=== PATIENT | male | born 1950 | race Caucasian/White ===

== ENCOUNTER 2017-07-17 16:47 | Inpatient (IN) | payer OTHER, MEDICAID ==
[~2017-07-17] VITALS: Ht 175.3 cm; Wt 68.0 kg
--- NOTE | 2017-07-17 19:30 | NUR ---
ADMISSION NOTE Received patient Direct Admit from [facility] via gurney, received report from Erika BORRERO. Patient admitted with diagnosis of Hematuria. Patient oriented to hospital routine, call light, toileting and safety-patient verbalized understanding.
[2017-07-17 19:46] VITALS: BP_SYST 91
[2017-07-17 19:50] VITALS: BP_SYST 91
--- NOTE | 2017-07-17 20:30 | NUR ---
OPENING NOTE RECEIVED PT REPORT FROM ADMIT NURSE SUZE. PT WAS A DIRECT ADMISSION FROM [facility], PT BROUGHT VIA GURNEY BY AMBULANCE. PT IS AOX4. CHEST RISE EVEN AND UNLABORED. NO SOB NOTED. NO DISTRESS NOTED. NO COMPLAINTS OF PAIN. PT ORIENTED TO ROOM. PT INSTRUCTED HOW TO USE CALL LIGHT. SAFETY MEASURES IN PLACE. BED IN LOWEST POSITION, BED ALARM ON, BED WHEELS LOCKED, SIDE RAILS UP X2, CALL LIGHT WITHIN REACH, BED TABLE WITHIN REACH. NO NEEDS AT THIS TIME. PT ENCOURAGED TO USE CALL LIGHT. WILL CONTINUE TO MONITOR PT.
--- NOTE | 2017-07-17 20:35 | NUR ---
DR. ANUJ ALBERT
--- NOTE | 2017-07-17 20:40 | NUR ---
DR. LESLIE PAGED FOR NEW ORDERS DR. LESLIE RETURNED CALL. NEW ORDERS RECEIVED FROM DR. LESLIE VIA TELEPHONE. ADMIT ORDER TO TELEMETRY. DX URINARY RETENTION, FLUID ORDER FOR NS @90, DIET: MECHANICAL SOFT. MORPHINE 4 MG IVP PRN Q4HRS FOR SEVER PAIN. CONSULT ORDER FOR DR. TOVAR, UROLOGY. MEDICATIONS NOT IN SYSTEM. DR. LESLIE REQUESTED ALL MEDICATIONS BE INPUTED INTO THE ORDERS AND HE WILL VERIFY WHICH MEDICATIONS TO CONTINUE. NO FURTHER ORDERS. WILL INPUT FURTHER ORDERS DAVIDSON.
--- NOTE | 2017-07-17 20:50 | NUR ---
CLOSING NOTE REPORT GIVEN TO GISSELL GRANADOS. DARWIN WILL BE TAKING OVER PT'S CARE. ENDORSED PT'S ORDERS AND POC.
[2017-07-17] MEDS ORDERED: ASPI81TA2 PO (20:57)
--- NOTE | 2017-07-17 21:08 | NUR ---
CONSULTATION PAGED/CALLED Reason for Consultation: URINARY RETENTION Person Who was Notified: SPOKE WITH SHANIKA FROM DR. TOVAR EXCHANGE Consulting Physician: Communication Coordinator Specialty: UROLOGIST Ordering Physician: AMBER HINDS
[2017-07-17] MEDS ORDERED: MAGN400O4 PO (21:17)
[2017-07-17] MEDS ORDERED: DOCU-144 PO (21:17)
[2017-07-17] MEDS ORDERED: LORA10CA PO (21:17)
[2017-07-17] MEDS ORDERED: MIRT15TA3 PO (21:17)
[2017-07-17] MEDS ORDERED: GABA-529 PO (21:17)
[2017-07-17] MEDS ORDERED: LOPE2CAP PO (21:17)
[2017-07-17] MEDS ORDERED: NA P118E RC (21:17)
[2017-07-17] MEDS ORDERED: LIP40 PO (21:17)
[2017-07-17] MEDS ORDERED: MULT PO (21:17)
[2017-07-17] MEDS ORDERED: LATA2.5D6 OP (21:17)
[2017-07-17] MEDS ORDERED: OMEG100037 PO (21:17)
[2017-07-17] MEDS ORDERED: TAMS-11 PO (21:17)
[2017-07-17] MEDS ORDERED: DULR10 RC (21:17)
[2017-07-17] MEDS ORDERED: NITSL SL (21:17)
[2017-07-17] MEDS ORDERED: CLOP75TA2 PO (21:17)
[2017-07-17] MEDS ORDERED: BISACODYL 10 MG/SUPPOSITORY RC PRN (21:30)
[2017-07-17] MEDS ORDERED: SIMETHICONE 80 MG TAB.CHEW PO PRN (21:30)
[2017-07-17] MEDS ORDERED: ONDANSETRON HCL 4 MG/2 ML VIAL IVP PRN (21:30)
--- NOTE | 2017-07-17 21:45 | NUR ---
Received call from FRANCI Concepcion covering for Dr. Borja (regarding urologist consult) Gave SBAR report. Advised that catheter site is red/swollen and leaking blood and urine. Only output thus far can't be measured, leaking onto bed. Informed him labs ordered for the AM. Informed him NS @ 90ml/hr ordered, he asked it be reduced to 50ml/hr. He said do not re-insert cath or attempt to irrigate. He says to have urology tray ready for AM and they will attempt irrigation and re-insertion. Informed charge nurse about urology tray request.
[2017-07-17 22:00] VITALS: BP_SYST 91
[2017-07-17] MEDS: NACL 0.9% 1,000 ML IV SCH (22:20)
[2017-07-17] MEDS: ZOLPIDEM TARTRATE 5 MG TABLET PO PRN (22:21)
--- NOTE | 2017-07-17 23:10 | NUR ---
PLATE MOUNTER advised that patient's BP is 66/38 (left arm) 72/45 (right arm) HR 94 98% room air 96.[address] Hughes to advise.
--- NOTE | 2017-07-17 23:13 | NUR ---
Called and spoke to Dr. Grey Advised of patient's low blood pressure. Dr. Grey ordered 1L NS bolus, stat (one-time) then to call him back 10 minutes after bolus administration to advise. Order read back, entered, carried out.
[2017-07-17] MEDS ORDERED: NACL 0.9% 1,000 ML IV ONE (23:15)
[2017-07-17 23:25] VITALS: BP_SYST 72
[2017-07-18] VITALS (26 sets, daily range): BP systolic 61–142
--- NOTE | 2017-07-18 00:40 | NUR ---
Called and spoke to Dr. Grey Advised of patient's blood pressure after 1LNS bolus 71/47 No output yet, bladder scan done approx 160ml residual. Dr. Grey ordered an additional 1L NS bolus, stat (one-time) then to call him back 10 minutes after bolus administration to advise. Order read back, entered, carried out.
[2017-07-18] MEDS ORDERED: NA PHOS,M-B/NA PHOS,DI-BA 118 ML (FLEET ENEMA) RC PRN (00:45)
[2017-07-18] MEDS ORDERED: LevALBUTEROL HCL 1.25 MG/0.5 ML *CONC.* VIAL.NEB (XOPENEX CONC.) INH PRN (00:45)
[2017-07-18] MEDS ORDERED: NITROGLYCERIN 0.4 MG TAB.SUBL SL PRN (00:45)
[2017-07-18] MEDS ORDERED: NACL 0.9% 1,000 ML IV ONE (01:00)
[2017-07-18] MEDS: LevALBUTEROL HCL 1.25 MG/0.5 ML *CONC.* VIAL.NEB (XOPENEX CONC.) INH SCH ×4 (01:17→19:46)
[2017-07-18] MEDS ORDERED: cefTRIAXone 1 GM IVPB PREMIX 50 ML IV ONE (02:05)
--- NOTE | 2017-07-18 02:05 | NUR ---
Called and spoke to Dr. Grey Advised that second ordered 1L NS bolus has infused, BP resulted 61/45, patient is still asymptomatic and alert/oriented x4. Dr. Grey ordered : to transfer patient to ICU, PICC line insertion, and levophed drip for BP maintenance. Order read back, entered, carried out. Will transfer patient to ICU.
[2017-07-18] MEDS ORDERED: VANCOMYCIN HCL 1,000 MG in D5W 250 ML IV SCH (02:45)
--- NOTE | 2017-07-18 02:45 | NUR ---
RECEIVED IN ICU Patient received in ICU bed #5 at this time. Patient awake and awake. SBP below 65. Patient on room air. No sign of respiratory distress noted. IV on RFA 18g running NS @ 150ml/hr. No sign of infiltration noted. Safety precaution in place. Call light within reach.
[2017-07-18] MEDS ORDERED: NOREPINEPHRINE 4 MG/4 ML VIAL IV ONE (03:02)
--- NOTE | 2017-07-18 03:10 | NUR ---
LEVOPHED Levophed started at this time at 2 mcg/min.
[2017-07-18] MEDS: NOREPINEPHRINE BITARTRATE 4 MG in D5W 246 ML IV PRN ×4 (03:16→21:59)
--- NOTE | 2017-07-18 03:20 | NUR ---
Levophed at 4 mcg/min Levophed titrated to 4mcg/min.
[2017-07-18] MEDS: cefTRIAXone 1 GM in D5W 50 ML IV SCH (03:30)
--- NOTE | 2017-07-18 03:40 | NUR ---
Levophed at 6 mcg/min Levophed titrated to 6 mcg/min.
[2017-07-18 03:41] LABS: HEMOGLOBIN 10.1 g/dL (14.0-18.0); MEAN CORPUSCULAR HEMOGLOBIN 28 pg (27-31); MEAN CORPUSCULAR HGB CONC 32 % (32-36); MEAN CORPUSCULAR VOLUME 85 fL (79.0-98.0); NEUTROPHILS % (AUTO) 94.8 % (40.0-70.0); PLATELET COUNT (AUTO) 364 K/uL (130-430); RED BLOOD CELL COUNT(AUTO) 3.64 MIL/uL (4.2-6.2); RED CELL DISTRIBUTION WIDTH 13.1 % (9.0-15.0); WHITE BLOOD COUNT (AUTO) 27.9 K/uL (4.8-10.8)
[2017-07-18 03:42] LABS: BASOPHILS # (AUTO) 0.1 K/uL (0.0-0.2); BASOPHILS % (AUTO) 0.2 % (0.0-2.0); EOSINOPHILS % (AUTO) 0.1 % (0.0-4.0); LYMPHOCYTES # (AUTO) 0.8 K/uL (1.0-5.5); MONOCYTES # (AUTO) 0.5 K/uL (0.0-1.0); MONOCYTES % (AUTO) 1.9 % (1.7-9.3); NEUTROPHILS # (AUTO) 26.5 K/uL (1.8-7.7)
[2017-07-18] MEDS ORDERED: VANCOMYCIN HCL 1000 MG/VIAL IV ONE (03:58)
--- NOTE | 2017-07-18 04:00 | NUR ---
Levophed at 8 mcg/min Levophed increased to 8 mcg/min. SBP at 86. Will continue to monitor.
--- NOTE | 2017-07-18 04:10 | NUR ---
Levophed at 10 mcg/min Levophed increased to 10 mcg/min.
[2017-07-18 04:11] LABS: INR 1.3 (0.80-1.20); PROTHROMBIN TIME 12.9 SECS (9.5-12.5)
[2017-07-18 04:13] LABS: PHOSPHORUS 3.9 mg/dL (2.7-4.5)
--- NOTE | 2017-07-18 04:15 | NUR ---
BP Patient's BP now at 93/43. Patient awake,alert and denies pain. VSS. No sign of distress noted at this time. Will continue to monitor.
[2017-07-18 04:38] LABS: ALBUMIN 2.5 g/dL (3.4-4.8); CALCIUM 8.2 mg/dL (8.4-11.0); CREATININE 1.37 mg/dL (0.55-1.30); FREE T4 (FREE THYROXINE) 0.6 ng/dL (0.6-1.6); PHOSPHORUS 3.7 mg/dL (2.7-4.5); THYROID STIMULATING HORMONE 1.09 uIu/mL (0.34-4.82); TOTAL BILIRUBIN 0.5 mg/dL (0.0-1.0)
--- NOTE | 2017-07-18 05:15 | NUR ---
DR ARELLANO EXCHANGE NOTIFIED OF CONSULT, TALKED TO QUIANA DR BARONE EXCHANGE NOTIFIED OF CONSULT, TALKED TO QUIANA
--- NOTE | 2017-07-18 05:15 | NUR ---
LEVOPHED AT 12MCG/MIN
--- NOTE | 2017-07-18 06:00 | NUR ---
PICC LINE CONSENT Consent for PICC Line placement signed by patient.
--- NOTE | 2017-07-18 07:10 | NUR ---
ENDORSEMENT Patient endorsed and report given to am nurse Rory. Other items endorsed: Sepsis reassessment, Levophed drip, UA specimen to be collected, Follow up on consults. Patient awake,alert and oriented at this time. VSS. BP within normal limits. Levophed still running at 12 mcg/min.
--- NOTE | 2017-07-18 08:00 | NUR ---
RN OPENING NOTE REPORT ENDORSED AT BEDSIDE BY GISSELL PULIDO. PT AWAKE AND ORIENTED X 4, SPEAKS LITHUANIAN, COOPERATIVE WITH NO COMPLAINT OF PAIN. LEVOPHED INFUSING AT 12mcg/MIN, bp 116/62. BREATHING UNLABORED AND SYMMETRICAL, 3L O2 VIA NC. TERESA IN PLACE AND SECURED, BLOODY OUTPUT NOTED WITH ACTIVE BLEEDING AT TERSEA INSERTION POINT: UROLOGIST IS SCHEDULED TO IRRIGATE BLADDER TODAY. BOWEL SOUNDS ACTIVE X 4, ABDOMEN DISTENDED. PT EDUCATED ON UNIT SAFETY AND DEMONSTRATED ABILITY TO USE CALL LIGHT, WHICH IS WITHIN REACH.
[2017-07-18] MEDS: NACL 0.9% 1,000 ML IV SCH ×3 (08:29→21:41)
--- NOTE | 2017-07-18 08:30 | NUR ---
levophed would not scan: manual barcode entered.
[2017-07-18] MEDS ORDERED: CLOPIDOGREL BISULFATE 75 MG TABLET PO SCH (09:00)
--- NOTE | 2017-07-18 09:20 | NUR ---
DR. LESLIE AT BEDSIDE NEW ORDERS RECEIVED, INCLUDING A CT SCAN OF THE ABDOMEN AND A SWALLOW EVAL.
[2017-07-18] MEDS ORDERED: HYDROCORTISONE SOD SUCC 100 MG/2 ML VIAL IVP ONE (09:45)
[2017-07-18] MEDS: DOCUSATE SODIUM 100 MG CAPSULE PO SCH ×2 (09:48→21:41)
[2017-07-18] MEDS: LORATADINE 10 MG TABLET PO SCH (09:48)
[2017-07-18] MEDS: ASPIRIN 81 MG TAB.CHEW PO SCH (09:49)
[2017-07-18] MEDS: TAMSULOSIN HCL 0.4 MG CAP PO SCH ×2 (09:49→21:44)
--- NOTE | 2017-07-18 09:51 | NUR ---
Swallow evaluation called left a message for Jo, dialed [phone]
--- NOTE | 2017-07-18 10:55 | NUR ---
CT ABDOMEN PT TRANSPORTED TO RADIOLOGY ON DECKHAND TUNA BOAT AND O2 THERAPY. NURSE REMAINED WITH PT THE ENTIRE TIME AND RETURNED PT TO ROOM 1115.
--- NOTE | 2017-07-18 11:30 | NUR ---
PICC LINE NURSE AT BEDSIDE PICC INSERTED AT RIGHT UPPER ARM.
[2017-07-18] MEDS: MORPHINE 4 MG/ML INJ. SYRINGE IVP PRN (12:00)
--- NOTE | 2017-07-18 13:50 | NUR ---
FRANCI ALONSO AT BEDSIDE/BLADDER IRRIGATION NEW TERESA PLACED USING GUIDEWIRE. BLADDER IRRIGATED 3L, NO S/S OF CURRENT BLEEDING, NO BLADDER DISTENTION NOTED.
--- NOTE | 2017-07-18 14:48 | NUR ---
S.T. SWALLOW EVAL COMPLETED. PT PRESENTS W/ MOD ORAL DYSPHAGIA CHARACTERIZED BY PROLONGED AND LABORED MASTICATION W/ ORAL RESIDUE CLEARED BY LIQUID CHASER. NO S/S OF ASPIRATION. REC: PUREE DIET. THIN LIQUIDS OK. PT WAS RELUCTANT TO CHANGE TO PUREE DIET, BUT JAVA FRONT END WEB DEVELOPER EXPLAINED TO HIM THE RATIONALE FOR CHANGING TO PUREE AND HE FINALLY AGREED. NURSE JAMES NOTIFIED. [id number] CJ [id number] CJ [id number] NOMS LEVEL 5
[2017-07-18] MEDS ORDERED: MORPHINE 4 MG/ML INJ. SYRINGE IVP ONE (15:00)
[2017-07-18] MEDS: HYDROCORTISONE SOD SUCC 100 MG/2 ML VIAL IVP SCH ×2 (15:23→21:41)
[2017-07-18] MEDS ORDERED: GENTAMICIN 120 mg/100 mL NS 100 ML IV ONE (16:00)
--- NOTE | 2017-07-18 18:52 | NUR ---
REQUEST FOR DR. TOVAR/FRANCI ALONSO TO CONTACT PT'S DAUGHTER, ALBERTO: [phone]
--- NOTE | 2017-07-18 20:43 | NUR ---
Patient awake alert sitting up in bed on 02 NC @ 3 LPM verbally indicative assist for position change chest movement symmetrical unlabored call yeung with patient .
[2017-07-18] MEDS ORDERED: LATANOPROST 2.5 ML DROPS (XALATAN) OP SCH (21:00)
[2017-07-18] MEDS: GABAPENTIN 100 MG CAPSULE PO SCH (21:42)
[2017-07-18] MEDS: ATORVASTATIN 20 MG TABLET PO SCH (21:43)
[2017-07-18] MEDS: LORazepam 2 MG/ML VIAL IVP PRN (21:44)
[2017-07-18] MEDS: MIRTAZAPINE 15 MG TABLET PO SCH (21:47)
--- NOTE | 2017-07-18 22:20 | NUR ---
LORAZEPAM 1 MG IVP administer per patient Request for agitation / anxiety .
--- NOTE | 2017-07-18 22:21 | NUR ---
ATIVAN 1 MG IVP HELPFUL FOR AGITATION , PATIENT AWAKE & COMFORTABLE .
--- NOTE | 2017-07-18 23:23 | NUR ---
SBAR REPORT GIVEN TO JAMES BORRERO .
[2017-07-19] VITALS (24 sets, daily range): BP systolic 86–144
[2017-07-19] MEDS ORDERED: VANCOMYCIN HCL 1,250 MG in NS 250 ML IV SCH ×2
--- NOTE | 2017-07-19 | NUR ---
AAOX4. IN NO APPARENT DISTRESS. DENIES PAIN. LEVOPHED DRIP AT 8 MCG/MIN. BP 126/55, LEVOPHED DRIP TITRATED DOWN TO 6 MCG/MIN. ON O2 AT 3L/MIN. TERESA CATH PATENT DRAINING MOD YELLOW URINE TO GRAVITY.
--- NOTE | 2017-07-19 00:15 | NUR ---
BP 119/66, LEVOPHED DECREASED TO 4 MCG/MIN.
[2017-07-19] MEDS: cefTRIAXone 1 GM in D5W 50 ML IV SCH (00:29)
[2017-07-19] MEDS: LevALBUTEROL HCL 1.25 MG/0.5 ML *CONC.* VIAL.NEB (XOPENEX CONC.) INH SCH ×4 (01:00→19:51)
--- NOTE | 2017-07-19 01:00 | NUR ---
REFUSED BR TX.
--- NOTE | 2017-07-19 02:00 | NUR ---
SLEPT INTERMITTENTLY. OCC MOIST NON-PRODUCTIVE COUGH. REPOSITIONS SELF WELL.
--- NOTE | 2017-07-19 04:00 | NUR ---
BP 105/53, LEVOPHED DRIP TITRATED DOWN TO 2 MCG/MIN.
--- NOTE | 2017-07-19 05:00 | NUR ---
1 TABATHA BREEN LBQuintin, CLEANED. LACEY-CARE GIVEN. Z-GUARD APPLIED, SKIN CARE GIVEN. ORAL CARE DONE. CHG BATH RENDERED. BACK CARE DONE. COMPLETE LINEN CHANGE. ASSISTS WITH TURNING. RAJEEV GUARDADO WELL. Addendum: 07/19/17 at 0642 by Rory Modi RN TERESA CARE DONE, OLD BLOOD NOTED.
[2017-07-19] MEDS: NACL 0.9% 1,000 ML IV SCH ×2 (05:02→11:58)
--- NOTE | 2017-07-19 06:00 | NUR ---
UO GOOD. DENIES PAIN, SOB, DISTRESS. LEVOPHED AT 2 MCG/MIN. REMAINS IN GUARDED CONDITION.
[2017-07-19] MEDS: HYDROCORTISONE SOD SUCC 100 MG/2 ML VIAL IVP SCH ×2 (06:01→20:28)
[2017-07-19 06:43] LABS: HEMATOCRIT 28.9 % (36-54); HEMOGLOBIN 9.7 g/dL (14.0-18.0); MEAN CORPUSCULAR HEMOGLOBIN 29 pg (27-31); MEAN CORPUSCULAR HGB CONC 34 % (32-36); MEAN CORPUSCULAR VOLUME 85 fL (79.0-98.0); PLATELET COUNT (AUTO) 324 K/uL (130-430); RED BLOOD CELL COUNT(AUTO) 3.39 MIL/uL (4.2-6.2); RED CELL DISTRIBUTION WIDTH 13.6 % (9.0-15.0); WHITE BLOOD COUNT (AUTO) 24.7 K/uL (4.8-10.8)
[2017-07-19 07:06] LABS: ALBUMIN 2.4 g/dL (3.4-4.8); CALCIUM 8.5 mg/dL (8.4-11.0); CREATININE 0.67 mg/dL (0.55-1.30); PHOSPHORUS 2.6 mg/dL (2.7-4.5); POTASSIUM 3.4 mmol/L (3.5-5.1); TOTAL BILIRUBIN 0.2 mg/dL (0.0-1.0)
--- NOTE | 2017-07-19 07:10 | NUR ---
AM ROUNDS: Patient is awake, alert, and oriented x4. Patient denies pain and is asking when he is going to be moved. No s/s of distress noted. Will continue to monitor.
--- NOTE | 2017-07-19 07:17 | NUR ---
LEVOPHED: Drip stopped.
--- NOTE | 2017-07-19 07:59 | NUR ---
Nutrition Update Louie Scale 14 noted. Pt admitted for hematuria Diet: pureed diet BMI: 22.2 kg/m2 RD to follow per nutrition care standards.
[2017-07-19 08:00] LABS: BILIRUBIN,URINE NEGATIVE (NEGATIVE); BLOOD, URINE 3+ (NEGATIVE); CLARITY/URINE CLOUDY (CLEAR); COLOR,URINE YELLOW (YELLOW); GLUCOSE,URINE NEGATIVE (NEGATIVE); KETONES,URINE TRACE (NEGATIVE); LEUKOCYTE ESTERASE ,URINE 2+ (NEGATIVE); NITRITE, URINE NEGATIVE (NEGATIVE); PROTEIN URINE NEGATIVE (NEGATIVE); UROBILINOGEN,URINE 0.2 (0.2-1.0)
[2017-07-19 08:16] LABS: RBC,URINE 20-50 /HPF (0-3)
[2017-07-19 08:17] LABS: BACTERIA,URINE MODERATE /HPF (None Seen); MUCUS,URINE 1+ /LPF (None Seen); WBC,URINE >100 /HPF (0-3)
[2017-07-19] MEDS: DOCUSATE SODIUM 100 MG CAPSULE PO SCH ×2 (08:25→20:29)
[2017-07-19] MEDS: POTASSIUM CHLORIDE 20 MEQ TAB.PRT.SR PO PRN (08:26)
[2017-07-19] MEDS: TAMSULOSIN HCL 0.4 MG CAP PO SCH ×2 (08:26→20:28)
[2017-07-19] MEDS: LORATADINE 10 MG TABLET PO SCH (08:26)
[2017-07-19] MEDS: ASPIRIN 81 MG TAB.CHEW PO SCH (08:26)
[2017-07-19] MEDS: LORazepam 2 MG/ML VIAL IVP PRN ×2 (08:54→18:59)
--- NOTE | 2017-07-19 09:00 | NUR ---
P.T. NOTES (Late entry) HOLD P.T. EVAL PER GISSELL BOWLES DUE TO HIGH HEART RATE (MID 150'S). PLAN: FOLLOW UP AGAIN TOMORROW.
--- NOTE | 2017-07-19 09:00 | NUR ---
PAGED: Dr. Grey pageshakeel regarding elevated HR. Spoke with his office.
[2017-07-19] MEDS ORDERED: DILTIAZEM HCL 25 MG/5 ML VIAL IVP ONE ×2 (09:15→10:00)
[2017-07-19] MEDS ORDERED: DILTIAZEM HCL 30 MG TABLET PO ONE (09:15)
--- NOTE | 2017-07-19 09:15 | NUR ---
MD ROUNDS: Dr. Grey in to see patient. He was made aware of change in HR.
--- NOTE | 2017-07-19 09:22 | NUR ---
consult for dr. garrison called spoke to [facility] dialed [phone]
[2017-07-19 09:24] LABS: BAND % (MANUAL) 15 % (0-6); BASOPHILS % (MANUAL) 0 % (0-2); EOSINOPHILS % (MANUAL) 0 % (0-7); LYMPHOCYTES % (MANUAL) 4 % (20-46); MONOCYTES % (MANUAL) 2 % (0-11)
[2017-07-19] MEDS ORDERED: DILTIAZEM HCL 25 MG/5 ML VIAL ONE ×2 (09:24→09:57)
[2017-07-19] MEDS ORDERED: DILTIAZEM HCL 30 MG TABLET ONE (09:24)
--- NOTE | 2017-07-19 09:38 | NUR ---
PAGED: Dr. Grey paged regarding follow up for medication administration. Spoke with his office.
--- NOTE | 2017-07-19 09:47 | NUR ---
MD ALBERT: Dr. El albert, spoke with his office.
--- NOTE | 2017-07-19 09:51 | NUR ---
CALLBACK: Dr. Grey called back, orders received.
--- NOTE | 2017-07-19 10:06 | NUR ---
PAGED: Dr. El kearney, spoke with eleni
[2017-07-19] MEDS ORDERED: AMIODARONE HCL 900 MG in D5W 482 ML IV SCH (11:00)
[2017-07-19] MEDS ORDERED: AMIODARONE HCL 150 MG in D5W 100 ML IV ONE (11:15)
[2017-07-19] MEDS ORDERED: LEVOFLOXACIN 250 MG/D5W 50 ML IV ONE (11:30)
--- NOTE | 2017-07-19 11:53 | NUR ---
MD ROUNDS: Dr. Cherry is on the unit, patient has just converted to NSR. Orders received from Dr. Cherry.
--- NOTE | 2017-07-19 11:56 | NUR ---
Dietitian Recommendations *Recommend continuing Pureed diet per MD orders. Oral supplement Boost Plus comes standard w/ Pureed diet and provides additional 1080 kcal and 42 gm protein daily. *Encourage pt to increase his food intake. Please see Nutritional Assessment for details. SUSHANT TREVINO
[2017-07-19] MEDS ORDERED: AMIODARONE HCL 200 MG TABLET PO ONE (12:00)
--- NOTE | 2017-07-19 12:15 | NUR ---
LEVOPHED: Started at 8mcg/min. Will continue to monitor.
--- NOTE | 2017-07-19 12:30 | NUR ---
Trimmer Tailer Note: Pt referred to Trimmer Tailer by nursing for suicide risk assessment. RECORD SYSTEMS ANALYST met with pt at bedside. Pt appears to be alert and oriented. RECORD SYSTEMS ANALYST completed Discharge Plan Assessment; please refer to Assessment for additional information if needed. Pt has been living at [facility] for 5 months. Prior to that, pt was living at [facility] for 2.5 years due to pt having a stroke. Pt moved to [facility] to be closer to his dtr, Amy, that lives in [place]. Pt reports history of anxiety and depression. Pt takes medication for his mental health symptoms. Pt could not remember which medication he takes, but reports that the medication is helpful. Pt reports having a desire to harm himself, but he does not have a current plan or the means to carry it out. Pt reports feeling hopeless due to his current condition. 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 Pt's daughters visit pt often and pt has two grandchildren. Pt reports that his family is supportive. RECORD SYSTEMS ANALYST provided emotional support. Pt did not express any other needs or concerns at this time. RECORD SYSTEMS ANALYST encouraged pt to contact Trimmer Tailer if any additional needs arise. RECORD SYSTEMS ANALYST updated Charge Nurse, Vanessa, and confirmed that pt is receiving paper tray from [facility]. Trimmer Tailer will continue to remain available and follow up as needed.
--- NOTE | 2017-07-19 12:50 | NUR ---
LEVOPHED: Titrated to 17mcg/min. Will continue to monitor.
--- NOTE | 2017-07-19 13:00 | NUR ---
REFUSED LUNCH: Patient refused lunch at this time.
[2017-07-19] MEDS: DILTIAZEM HCL 30 MG TABLET PO SCH ×2 (13:26→21:22)
[2017-07-19] MEDS: NOREPINEPHRINE BITARTRATE 4 MG in D5W 246 ML IV PRN ×2 (14:09→20:43)
--- NOTE | 2017-07-19 14:09 | NUR ---
LEVOPHED: Titrated to 14mcg/min.
--- NOTE | 2017-07-19 15:00 | NUR ---
LEVOPHED: Titrated to 10mcg/min.
--- NOTE | 2017-07-19 17:00 | NUR ---
LEVOPHED: Titrated to 8mcg/min.
--- NOTE | 2017-07-19 18:00 | NUR ---
LEVOPHED: Titrated to 6mcg/min.
--- NOTE | 2017-07-19 19:30 | NUR ---
PM SHIFT ASSESSMENT Pt is alert and oriented x2. SR noted on monitor. O2 via NC @ 3L, RR even and unlabored. PICC to OLGA with IVF infusing, no signs of infiltration noted. Allen catheter intact and draining to gravity, scant blood noted at allen insertion site, urine is clear yellow. Safety precautions in place, call light within reach. Will continue to monitor.
[2017-07-19] MEDS: MIRTAZAPINE 15 MG TABLET PO SCH (20:28)
[2017-07-19] MEDS: ZOLPIDEM TARTRATE 5 MG TABLET PO PRN (20:29)
[2017-07-19] MEDS: AMIODARONE HCL 200 MG TABLET PO SCH (20:29)
[2017-07-19] MEDS: GABAPENTIN 100 MG CAPSULE PO SCH (20:29)
[2017-07-19] MEDS: ATORVASTATIN 20 MG TABLET PO SCH (20:30)
[2017-07-19] MEDS: LATANOPROST 2.5 ML DROPS (XALATAN) OP SCH (20:30)
[2017-07-19] MEDS: ACETAMINOPHEN 325 MG TABLET PO PRN (21:23)
--- NOTE | 2017-07-19 22:15 | NUR ---
CHG CHG bath given, pt tolerated care well.
[2017-07-19 23:11] LABS: HEMOGLOBIN A1C 5.5 % (4.8-5.6)
[2017-07-20] VITALS (25 sets, daily range): BP systolic 84–129
[2017-07-20] MEDS: LevALBUTEROL HCL 1.25 MG/0.5 ML *CONC.* VIAL.NEB (XOPENEX CONC.) INH SCH ×4 (00:59→19:49)
[2017-07-20] MEDS: cefTRIAXone 1 GM in D5W 50 ML IV SCH (01:04)
[2017-07-20 02:06] LABS: T4 (THYROXINE) 5.6 ug/dL (4.5-12.0)
--- NOTE | 2017-07-20 03:30 | NUR ---
Pt resting in bed, no signs of SOB or acute distress noted. Will continue to monitor.
[2017-07-20 06:56] LABS: BASOPHILS % (AUTO) 0.2 % (0.0-2.0); EOSINOPHILS % (AUTO) 0.1 % (0.0-4.0); HEMATOCRIT 28.2 % (36-54); HEMOGLOBIN 9.4 g/dL (14.0-18.0); LYMPHOCYTES # (AUTO) 1.5 K/uL (1.0-5.5); LYMPHOCYTES % (AUTO) 8.1 % (20.5-51.5); MEAN CORPUSCULAR HEMOGLOBIN 28 pg (27-31); MEAN CORPUSCULAR HGB CONC 33 % (32-36); MEAN CORPUSCULAR VOLUME 85 fL (79.0-98.0); MONOCYTES # (AUTO) 0.9 K/uL (0.0-1.0); MONOCYTES % (AUTO) 4.9 % (1.7-9.3); NEUTROPHILS # (AUTO) 16.3 K/uL (1.8-7.7); NEUTROPHILS % (AUTO) 86.7 % (40.0-70.0); PLATELET COUNT (AUTO) 306 K/uL (130-430); RED BLOOD CELL COUNT(AUTO) 3.32 MIL/uL (4.2-6.2); RED CELL DISTRIBUTION WIDTH 13.2 % (9.0-15.0)
[2017-07-20] MEDS ORDERED: DILTIAZEM HCL 30 MG TABLET ONE (06:57)
[2017-07-20] MEDS: DILTIAZEM HCL 30 MG TABLET PO SCH ×3 (06:58→21:39)
[2017-07-20] MEDS: NACL 0.9% 1,000 ML IV SCH (06:58)
[2017-07-20 07:09] LABS: CALCIUM 8.4 mg/dL (8.4-11.0); CREATININE 0.63 mg/dL (0.55-1.30); PHOSPHORUS 3.3 mg/dL (2.7-4.5)
[2017-07-20 07:11] LABS: WHITE BLOOD COUNT (AUTO) 18.7 K/uL (4.8-10.8)
--- NOTE | 2017-07-20 07:15 | NUR ---
ENDORSEMENT Pt care endorsed to GISSELL Jalloh using nursing SBAR.
[2017-07-20 07:19] LABS: POTASSIUM 2.7 mmol/L (3.5-5.1)
--- NOTE | 2017-07-20 07:24 | NUR ---
PAGED: Dr. Grey paged for critical labs. Left a voicemail on cell phone.
--- NOTE | 2017-07-20 07:24 | NUR ---
REPORT: Report received from Linsey for continuation of care.
--- NOTE | 2017-07-20 07:34 | NUR ---
CALLBACK: Dr. Grey stated he would come in to enter orders.
[2017-07-20] MEDS: AMIODARONE HCL 200 MG TABLET PO SCH ×2 (08:19→20:17)
[2017-07-20] MEDS: HYDROCORTISONE SOD SUCC 100 MG/2 ML VIAL IVP SCH ×2 (08:20→20:18)
[2017-07-20] MEDS: TAMSULOSIN HCL 0.4 MG CAP PO SCH ×2 (08:21→20:17)
[2017-07-20] MEDS: DOCUSATE SODIUM 100 MG CAPSULE PO SCH ×2 (08:21→20:18)
[2017-07-20] MEDS: LORATADINE 10 MG TABLET PO SCH (08:21)
[2017-07-20] MEDS: ASPIRIN 81 MG TAB.CHEW PO SCH (08:21)
[2017-07-20] MEDS: POTASSIUM CHLORIDE 20 MEQ TAB.PRT.SR PO PRN (08:21)
--- NOTE | 2017-07-20 08:45 | NUR ---
P.T. NOTES GOT CLEARANCE FROM GISSELL BOWLES TO INITIATE P.T. EVAL. ATTEMPTED TO DO SOME BED MOBILITY ACTIVITIES BUT GISSELL ROSALES STATES TO HOLD P.T. AT THIS TIME. REQUESTED TO CANCEL P.T. EVAL ORDER UNTIL M.D. CLEARS HIM THAT HE CAN START OUT OF BED ACTIVITIES. PLAN: WE'LL FOLLOW UP WHEN NEW P.T. EVAL IS ORDERED.
[2017-07-20] MEDS ORDERED: LEVOFLOXACIN 250 MG/D5W 50 ML IV SCH (09:00)
--- NOTE | 2017-07-20 09:05 | NUR ---
consult for dr. clark called (dr. andres medical radiation tech) spoke to arunchrissy dialed [phone]
--- NOTE | 2017-07-20 09:39 | NUR ---
MEDICATION: Medication administration not saved. Medication entered manually per Charge, GISSELL Mendez.
[2017-07-20] MEDS: NOREPINEPHRINE BITARTRATE 4 MG in D5W 246 ML IV PRN (10:39)
--- NOTE | 2017-07-20 10:54 | NUR ---
pt in bed room 8 in ICU PT TRY TO DO NUMBER 2 AND THE SITTER BESIDE HIM
--- NOTE | 2017-07-20 10:55 | NUR ---
PT RESTING IN BED AND WE MONITOR HIS VITAL SIGN
--- NOTE | 2017-07-20 11:09 | NUR ---
PT IS AWAKE JUST TALKING TALKING
--- NOTE | 2017-07-20 11:30 | NUR ---
PT WENT BACK TO SLEEP AND THE SITTER BESIDE HIM
--- NOTE | 2017-07-20 11:45 | NUR ---
FAMILY WITH HIM NOW AND THE SITTER BESIDE HIM
[2017-07-20] MEDS ORDERED: POTASSIUM CHLORIDE 20 MEQ TAB.PRT.SR PO ONE (12:00)
[2017-07-20] MEDS: MORPHINE 4 MG/ML INJ. SYRINGE IVP PRN ×2 (12:00→19:28)
--- NOTE | 2017-07-20 12:02 | NUR ---
PT GET HIS MEDICATION AND THE FAMILY WITH HIM IN ROOM
--- NOTE | 2017-07-20 12:15 | NUR ---
PT WENT BACK TO SLEEP
--- NOTE | 2017-07-20 12:27 | NUR ---
PT REFUSE TO EAT BUT HE DRINK THE BOOST
--- NOTE | 2017-07-20 12:45 | NUR ---
PT WENT BACK TO SLEEP
--- NOTE | 2017-07-20 13:00 | NUR ---
PATIENT RESTING: Patient resting quietly. No acute distress noted. Vital signs within normal range.
--- NOTE | 2017-07-20 13:02 | NUR ---
LOUIE SCALE EVALUATION: Patient evaluated for a low Louie score of 15. Patient was awake, alert, oriented, and received in a Abdirizak bed with a mattress. Patient is unable to turn in bed independently. Skin is fair. Recommend encourage and assist patient as needed with repositioning every 2 hours with pillow support and off-load pressure areas with pillows for pressure re-distribution. Elevate, off-load and float bilateral heels with pillows. Use moisture barrier cream on buttocks and other moisture susceptible areas QID and as needed for soiling. Perform skin care and monitor skin integrity Q shift.
--- NOTE | 2017-07-20 13:15 | NUR ---
PATIENT RESTING: Patient resting quietly. No acute distress noted. Vital signs within normal range.
--- NOTE | 2017-07-20 13:29 | NUR ---
security came to scan the pt and the sitter beside
--- NOTE | 2017-07-20 13:45 | NUR ---
pt sleeping he look comfortable
--- NOTE | 2017-07-20 14:00 | NUR ---
pt sleeping and the sitter beside his vital normal 101/53 ,oxygen 98% heart rate is 68
--- NOTE | 2017-07-20 14:15 | NUR ---
pt still sleeping
--- NOTE | 2017-07-20 14:29 | NUR ---
PAGED: Dr. Levin paged for micro results.
--- NOTE | 2017-07-20 14:30 | NUR ---
pt resting he have family and the sitter beside him
--- NOTE | 2017-07-20 14:38 | NUR ---
pt still sleeping
--- NOTE | 2017-07-20 15:01 | NUR ---
CALLBACK: Dr. Levin called back, stated he would come in.
--- NOTE | 2017-07-20 15:02 | NUR ---
pt get his medication now he is sleeping he look comfortable and the sitter beside him
--- NOTE | 2017-07-20 15:15 | NUR ---
pt still sleeping his family left and the sitter beside him
--- NOTE | 2017-07-20 15:30 | NUR ---
pt still resting
[2017-07-20] MEDS: LORazepam 2 MG/ML VIAL IVP PRN (15:32)
--- NOTE | 2017-07-20 15:45 | NUR ---
he still sleeping
--- NOTE | 2017-07-20 16:00 | NUR ---
he is sleeping his vital is normal blood pressure is96/54 heart rate is 61 and his oxygen is 98%
--- NOTE | 2017-07-20 16:14 | NUR ---
Indira DUNCAN: Dr. Avery kearney spoke to cristiane dialed [phone]
[2017-07-20] MEDS ORDERED: *TOBRAMYCIN PER PHARMACY XX PRN (16:15)
--- NOTE | 2017-07-20 16:15 | NUR ---
PT STILL SLEEPING AND THE SITTER BESIDE HIM
--- NOTE | 2017-07-20 16:30 | NUR ---
PT STILL SLEEPING
--- NOTE | 2017-07-20 16:45 | NUR ---
PT STILL SLEEPING AND THE SITTER BESIDE HIM
--- NOTE | 2017-07-20 17:02 | NUR ---
pt still sleeping
--- NOTE | 2017-07-20 17:08 | NUR ---
MS Indira Varela called spoke to ed dialed [phone]
--- NOTE | 2017-07-20 17:15 | NUR ---
pt still sleeping and the sitter beside him
--- NOTE | 2017-07-20 17:20 | NUR ---
MEDICATION: Tobramycin not available. Spoke with Garrett in pharmacy, he stated they are mixing it.
--- NOTE | 2017-07-20 17:27 | NUR ---
Paged: Dr. Varela paged spoke to ed dialed [phone]
[2017-07-20] MEDS: TOBRAMYCIN SULFATE IV SCH (17:28)
[2017-07-20] MEDS: NS IV SCH (17:28)
--- NOTE | 2017-07-20 17:30 | NUR ---
pt get chg bath he is awake now
--- NOTE | 2017-07-20 17:35 | NUR ---
CALLBACK: Dr. Varela called, he is covering for Dr. Dewey. Stated he would be in tomorrow morning to see patient.
--- NOTE | 2017-07-20 17:45 | NUR ---
pt refuse to eat his dinner but he drink his boost and he like the ice cream
--- NOTE | 2017-07-20 18:15 | NUR ---
opening notes:Tp is on Rm 8 his lying & sleeping by this time, Pt looks comfortably.continue of monitoring.
--- NOTE | 2017-07-20 18:30 | NUR ---
PT STILL SLEEPING ,NO SIGNS OF DISCOMFORT.CONTINUE OF MONITORING
--- NOTE | 2017-07-20 18:44 | NUR ---
CLOSING NOTE: All needs met. Patient is on O2 via NC @ 3LPM. Levophed drip is running at 8mcg/min. Gonzales catheter is draining to gravity. Sitter is at bedside. Will endorse to NOC shift nurse.
--- NOTE | 2017-07-20 18:45 | NUR ---
PT STILL SLEEPING NO SIGNS OF DISTRESS.CONTINUE OF MONITORING.
--- NOTE | 2017-07-20 19:00 | NUR ---
PT IS AWAKE HIS ASKING FOR TYLENOL NURSE IS AWARE FOR PT REQUEST, PT HIS DRINKING BOOTS RIGHT NOW.PT HE LOOKS FINE .CONTINUE OF MONITORING.
--- NOTE | 2017-07-20 19:15 | NUR ---
PT IS AWAKE AND KEEP ASKING FOR TYLENOL I EXPLAIN TO THE PT THAT NURSE IS AWARE FOR HIS REQUEST PT UNDERSTAND HE CLOSE HIS HE LOOKS COMFORTABLE.CONTINUE OF MONITORING.
--- NOTE | 2017-07-20 19:15 | NUR ---
PT V/S IS STABLE
--- NOTE | 2017-07-20 19:30 | NUR ---
PT IS AWAKE, NURSE CAME TO GIVE HIM A MORPHINE MEDICINE,PT IS RESTING NO SIGNS OF DISTRESS.V/S IS STABLE, CONTINUE OF MONITORING
--- NOTE | 2017-07-20 19:40 | NUR ---
Beginning of shift assessment Pt lying in bed resting w eyes closed. A&Ox3 able to make needs known, able to follow commands. Respirations even and unlabored. Pt on O2 @ 3 lm via n/c, no respiratory distress noted. front desk monitor shows sinus rhythm. OLGA PICC in place infusing Levophed @ 8 mcg, IVF infusing. No s/s of infiltration or infection noted. Pt SBP maintaining in 120's, Levophed turned down to 6 mcg. F/c draining yellow clear urine to gravity. Pt on isolation for MDRO blood. Sitter present due to pt having suicidal ideation. Pt was asked if he still wanted to harm himself and pt reports "yes." When asked if he has a plan, pt reports "no." Bed in low position for safety, will continue to monitor
--- NOTE | 2017-07-20 19:45 | NUR ---
PT IS RESTING NO SIGNS OF DISTRESS,V/S IS STABLE CONTINUE OF MONITORING.
--- NOTE | 2017-07-20 20:00 | NUR ---
PT IS RESTING ON HIS BED AND RECEIVING A BREATHING TREATMENT.PT LOOKS FINE NO SIGNS OF DISTRESS, CONTINUE OF MONITORING.
--- NOTE | 2017-07-20 20:15 | NUR ---
PT BACK TO SLEEP HE LOOKS COMFORTABLE RIGHT NOW,CONTINUE OF MONITORING.
--- NOTE | 2017-07-20 20:15 | NUR ---
NURSE CAME TO PASS SOME OF PT MEDICATIONS.
[2017-07-20] MEDS: MIRTAZAPINE 15 MG TABLET PO SCH (20:17)
[2017-07-20] MEDS: GABAPENTIN 100 MG CAPSULE PO SCH (20:17)
[2017-07-20] MEDS: LATANOPROST 2.5 ML DROPS (XALATAN) OP SCH (20:18)
[2017-07-20] MEDS: ATORVASTATIN 20 MG TABLET PO SCH (20:18)
--- NOTE | 2017-07-20 20:30 | NUR ---
PT ON BED SLEEPING HIS FINE NO SIGNS OF DISTRESS. V/S IS STABLE ,CONTINUE OF MONITORING.
--- NOTE | 2017-07-20 20:45 | NUR ---
PT STILL SLEEPING GOOD,NO SIGNS OF DISTRESS, CONTINUE OF MONITORING.
--- NOTE | 2017-07-20 21:00 | NUR ---
PT ON BED STILL SLEEPING ,NO SIGNS OF DISTRESS CONTINUE OF MONITORING.
--- NOTE | 2017-07-20 21:15 | NUR ---
PT STILL SLEEPING V/S IS STABLE NO SIGNS OF DISTRESS.CONTINUE OF MONITORING.
--- NOTE | 2017-07-20 21:30 | NUR ---
PT WOKE UP ASKING FOR PAIN MEDICATION, NURSE I AWARE FOR PT REQUEST, PT IS FINE NO SIGNS OF DISTRESS. CONTINUE OF MONITORING.
[2017-07-20] MEDS: ACETAMINOPHEN 325 MG TABLET PO PRN (21:38)
[2017-07-20] MEDS: ZOLPIDEM TARTRATE 5 MG TABLET PO PRN (21:39)
--- NOTE | 2017-07-20 21:45 | NUR ---
Kosta Pt c/o difficulty falling asleep. Reports he "just wants to get some rest." Kosta administered per MD order
--- NOTE | 2017-07-20 21:45 | NUR ---
NURSE CAME TO PASS A MEDICATION TO THE PT,THEN WE REPOSITIONED AND PULL UP THE PT. HE LOOKS COMFORTABLE,NO SIGNS OF DISTRESS PT BACK TO SLEEP.CONTINUE OF MONITORING.
--- NOTE | 2017-07-20 22:00 | NUR ---
PT RESTING LYING ON HIS BED CLOSING HIS EYES.NO SIGNS OF DISTRESS. CONTINUE OF MONITORING.
--- NOTE | 2017-07-20 22:15 | NUR ---
PT STILL SLEEPING COMFORTABLY,NO SIGNS OF DISTRESS V/S SIGNS IS STABLE CONTINUE OF MONITORING.
--- NOTE | 2017-07-20 22:30 | NUR ---
PT STILL SLEEPING V/S SIGNS IS STABLE PT LOOKS COMFORTABLY.CONTINUE OF MONITORING.
--- NOTE | 2017-07-20 22:45 | NUR ---
PT STILL SLEEPING COMFORTABLY NO SIGNS OF DISTRESS. CONTINUE OF MONITORING.
--- NOTE | 2017-07-20 23:00 | NUR ---
PT IS SLEEPING,NO SIGNS OF DISTRESS CONTINUE OF MONITORING.
--- NOTE | 2017-07-20 23:15 | NUR ---
PT STILL SLEEPING NO SIGNS OF DISTRESS.CONTINUE OF MONITORING.
--- NOTE | 2017-07-20 23:30 | NUR ---
PT ON BED STILL SLEEPING,NO SHOWING OF DISTRESS. CONTINUE OF MONITORING.
--- NOTE | 2017-07-20 23:45 | NUR ---
PT STILL SLEEPING ,NO SIGNS OF DISCOMFORT& DISTRESS CONTINUE OF MONITORING.
[2017-07-21] VITALS (24 sets, daily range): BP systolic 88–123
--- NOTE | 2017-07-21 | NUR ---
PT STILL SLEEPING,SOMETIMES HE COUGH, THEN BACK TO SLEEP.NO SIGNS OF DISCOMFORT & DISTRESS.CONTINUE OF MONITORING.
--- NOTE | 2017-07-21 | NUR ---
Rounds Pt resting comfortably. No acute changes in condition noted at this time
--- NOTE | 2017-07-21 00:15 | NUR ---
PT IS SLEEPING COMFORTABLY.CONTINUE OF MONITORING.V/S IS STABLE.
--- NOTE | 2017-07-21 00:30 | NUR ---
PT WOKE UP ASKING FOR WATER I GIVE SOME THEN HE BACK TO SLEEP PT IS FINE NO SIGNS OF DISTRESS.
--- NOTE | 2017-07-21 00:45 | NUR ---
PT STILL SLEEPING ,NO SIGNS OF DISCOMFORT & DISTRESS.CONTINUE OF MONITORING.
[2017-07-21] MEDS: cefTRIAXone 1 GM in D5W 50 ML IV SCH (00:51)
[2017-07-21] MEDS: LevALBUTEROL HCL 1.25 MG/0.5 ML *CONC.* VIAL.NEB (XOPENEX CONC.) INH SCH ×4 (01:00→19:12)
--- NOTE | 2017-07-21 01:30 | NUR ---
PT IS SLEEPING NO SIGNS OF DISTRESS.CONTINUE OF MONITORING
--- NOTE | 2017-07-21 01:45 | NUR ---
PT STILL SLEEPING COMFORTABLY,NO SIGS OF DISTRESS.CONTINUE OF MONITORING.
--- NOTE | 2017-07-21 02:00 | NUR ---
PT IS SLEEPING, NO SIGNS OF DISTRESS.CONTINUE OF MONITORING.
--- NOTE | 2017-07-21 02:15 | NUR ---
PT IS SLEEPING.CONTINUE OF MONITORING.
--- NOTE | 2017-07-21 02:30 | NUR ---
PT STILL SLEEPING,NO SIGNS OF ANY DISCOMFORT OR DISTRESS.CONTINUE OF MONITORING.
--- NOTE | 2017-07-21 02:45 | NUR ---
PT IS SLEEPING NO SIGNS OF ANY DISTRESS. CONTINUE OF MONITORING.
--- NOTE | 2017-07-21 03:00 | NUR ---
PT STILL SLEEPING ,HE LOOKS COMFORTABLY NO SIGNS OF DISTRESS .CONTINUE OF MONITORING.
--- NOTE | 2017-07-21 03:15 | NUR ---
PT IS SLEEPING NO SIGNS OG DISTRESS. CONTINUE OF MONITORING.
--- NOTE | 2017-07-21 03:30 | NUR ---
REPOSITIONING OF THE PT,PT IS FINE NO SIGNS OF DISTRESS.CONTINUE OF MONITORING.
[2017-07-21] MEDS: NACL 0.9% 1,000 ML IV SCH (03:32)
--- NOTE | 2017-07-21 03:33 | NUR ---
Levophed drip Pt SBP maintaining >110. Levophed titrated to 2 mcg. Will continue to monitor
--- NOTE | 2017-07-21 03:45 | NUR ---
PT BP IS LOW 86/50 HIS NURSE IS AWARE,NURSE CAME AND CHECKED THE PT.PT IS SLEEPING NO SIGNS OF ANY DISTRESS. CONTINUE OF MONITORING.
--- NOTE | 2017-07-21 03:45 | NUR ---
PT IS SLEEPING.
--- NOTE | 2017-07-21 03:55 | NUR ---
BP Pt SBP <90, rechecked BP continues to remain <90. Levophed increased to 4 mcg. Will continue to monitor
--- NOTE | 2017-07-21 04:00 | NUR ---
PT STILL SLEEPING COMFORTABLY,CONTINUE OF MONITORING.
--- NOTE | 2017-07-21 04:15 | NUR ---
PT STILL SLEEPING,CONTINUE OF MONITORING.
--- NOTE | 2017-07-21 04:30 | NUR ---
PT IS SLEEPING NO SIGNS OF DISCOMFORT & DISTRESS.CONTINUE OF MONITORING.
--- NOTE | 2017-07-21 04:45 | NUR ---
PT IS SLEEPING.CONTINUE OF MONITORING.
--- NOTE | 2017-07-21 05:00 | NUR ---
PT IS SLEEPING COMFORTABLY NO SIGNS OF DISTRESS.CONTINUE OF MONITORING.
--- NOTE | 2017-07-21 05:15 | NUR ---
PT ON BED STILL SLEEPING,NO SIGNS OF DISCOMFORT& DISTRESS.CONTINUE OF MONITORING.
--- NOTE | 2017-07-21 05:30 | NUR ---
X-RAY HEAD OF PHYSICS CAME TO DO THE PROCEDURE PT WOKE UP THIS TIME,AFTER THE PROCEDURE PT BACK TO SLEEP,NO SIGNS OF ANY DISTRESS.CONTINUE OF MONITORING.
[2017-07-21] MEDS: TOBRAMYCIN SULFATE IV SCH ×2 (05:41→17:13)
[2017-07-21] MEDS: NS IV SCH ×2 (05:41→17:13)
[2017-07-21] MEDS: DILTIAZEM HCL 30 MG TABLET PO SCH ×3 (05:42→21:13)
--- NOTE | 2017-07-21 05:45 | NUR ---
NURSE CAME TO DRAW SOME BLOOD ON PT RIGHT ARM,PT IS AWAKE THIS TIME,HIS FINE DURING THE BLOOD DRAW.NO SIGNS OF ANY DISCOMFORT OR DISTRESS,PT BACK TO SLEEP.CONTINUE OF MONITORING.
--- NOTE | 2017-07-21 06:00 | NUR ---
CLOSING MY NOTES ENDORSEMENT TO THE DAY SHIFT.
--- NOTE | 2017-07-21 06:15 | NUR ---
pt sleeping and the sitter beside him
--- NOTE | 2017-07-21 06:30 | NUR ---
pt sleeping and we monitor his vital sign
--- NOTE | 2017-07-21 06:45 | NUR ---
pt still sleeping and we change his position and the sitter beside him
[2017-07-21 06:56] LABS: BASOPHILS # (AUTO) 0.3 K/uL (0.0-0.2); BASOPHILS % (AUTO) 2.3 % (0.0-2.0); EOSINOPHILS # (AUTO) 0.1 K/uL (0.0-0.4); EOSINOPHILS % (AUTO) 0.5 % (0.0-4.0); HEMATOCRIT 27.2 % (36-54); HEMOGLOBIN 9.3 g/dL (14.0-18.0); LYMPHOCYTES # (AUTO) 1.4 K/uL (1.0-5.5); LYMPHOCYTES % (AUTO) 11.1 % (20.5-51.5); MEAN CORPUSCULAR HEMOGLOBIN 29 pg (27-31); MEAN CORPUSCULAR HGB CONC 34 % (32-36); MEAN CORPUSCULAR VOLUME 84 fL (79.0-98.0); MONOCYTES # (AUTO) 0.7 K/uL (0.0-1.0); MONOCYTES % (AUTO) 5.3 % (1.7-9.3); NEUTROPHILS # (AUTO) 9.9 K/uL (1.8-7.7); NEUTROPHILS % (AUTO) 80.8 % (40.0-70.0); PLATELET COUNT (AUTO) 319 K/uL (130-430); RED BLOOD CELL COUNT(AUTO) 3.22 MIL/uL (4.2-6.2); RED CELL DISTRIBUTION WIDTH 13.3 % (9.0-15.0)
[2017-07-21 06:57] LABS: WHITE BLOOD COUNT (AUTO) 12.4 K/uL (4.8-10.8)
--- NOTE | 2017-07-21 07:00 | NUR ---
pt still sleeping he look comfortably
--- NOTE | 2017-07-21 07:00 | NUR ---
CONSULT CALLED : REPAGED DR BOUCHER SPOKE WITH BHARATH.
[2017-07-21 07:11] LABS: ALANINE AMINOTRANSFERASE 22 U/L (12-78); ASPARTATE AMINOTRANSFERASE 19 U/L (10-37); CALCIUM 8.4 mg/dL (8.4-11.0); CHLORIDE 105 mmol/L (98-107); CREATININE 0.51 mg/dL (0.55-1.30); GLUCOSE 195 mg/dL (70-99); POTASSIUM 3.2 mmol/L (3.5-5.1); SODIUM SERUM 136 mmol/L (136-145); TOTAL BILIRUBIN 0.2 mg/dL (0.0-1.0); UREA NITROGEN, BLOOD 8 mg/dL (8-21)
--- NOTE | 2017-07-21 07:15 | NUR ---
End of shift report Endorsed pt care and SBAR to GISSELL Valadez
--- NOTE | 2017-07-21 07:15 | NUR ---
pt still sleeping
[2017-07-21 07:17] LABS: ANION GAP < 3 (5-15); GFR AFRICAN AMERICAN 210 mL/min (>90)
--- NOTE | 2017-07-21 07:30 | NUR ---
pt getting breathing treatment
--- NOTE | 2017-07-21 07:45 | NUR ---
pt still sleeping and the sitter beside him
--- NOTE | 2017-07-21 08:00 | NUR ---
pt still sleeping and the sitter beside him
--- NOTE | 2017-07-21 08:00 | NUR ---
RN OPENING NOTE REPORT RECEIVED AT BEDSIDE BY GISSELL CORONA. PT AWAKE, ORIENTED X 4, SPEAKS HUNGARIAN, COOPERATIVE. LEVOPHED INFUSING AT 2mcg/MIN, bp 108/60. BREATHING UNLABORED AND SYMMETRICAL, 3L O2 VIA NC. TERESA IN PLACE AND SECURED, CLEAR YELLOW OUTPUT NOTED. PT EDUCATED ON UNIT SAFETY AND DEMONSTRATED ABILITY TO USE CALL LIGHT, WHICH IS WITHIN REACH. SUICIDE PRECAUTIONS IN PLACE: DO PRESENT AT BEDSIDE.
--- NOTE | 2017-07-21 08:15 | NUR ---
PT AWAKE AND THE SITTER BESIDE HIM
--- NOTE | 2017-07-21 08:28 | NUR ---
PT REFUSE HIS BREAKFAST BUT HE DRINK HIS BOOST
--- NOTE | 2017-07-21 08:45 | NUR ---
PT WENT BACK TO SLEEP HIS VITAL IS NORMAL 101/48 HIS HEART RATE IS 72 AND HIS OXYGEN IS 97%
[2017-07-21] MEDS: TAMSULOSIN HCL 0.4 MG CAP PO SCH ×2 (08:53→21:09)
[2017-07-21] MEDS: LORATADINE 10 MG TABLET PO SCH (08:53)
[2017-07-21] MEDS: DOCUSATE SODIUM 100 MG CAPSULE PO SCH ×2 (08:53→21:10)
[2017-07-21] MEDS: ASPIRIN 81 MG TAB.CHEW PO SCH (08:54)
[2017-07-21] MEDS: AMIODARONE HCL 200 MG TABLET PO SCH ×2 (08:54→21:09)
[2017-07-21] MEDS: MORPHINE 4 MG/ML INJ. SYRINGE IVP PRN (08:55)
--- NOTE | 2017-07-21 09:00 | NUR ---
HIS NURSE HER TO GIVE HIS MEDICATION
[2017-07-21] MEDS: POTASSIUM CHLORIDE 20 MEQ TAB.PRT.SR PO PRN (09:13)
--- NOTE | 2017-07-21 09:15 | NUR ---
PT AWAKE AND THE SITTER BESIDE HIM
--- NOTE | 2017-07-21 09:30 | NUR ---
PT WENT BACK TO SLEEP
--- NOTE | 2017-07-21 09:45 | NUR ---
DOCTOR CAME TO CHECK TH PT
--- NOTE | 2017-07-21 10:00 | NUR ---
CHG BATH PROVIDED
--- NOTE | 2017-07-21 10:00 | NUR ---
PT SLEEPING AND THE SITTER BESIDE HIM
--- NOTE | 2017-07-21 10:15 | NUR ---
PT IS AWAKE AND HIS FAMILY WITH HIM
--- NOTE | 2017-07-21 10:31 | NUR ---
PT TALKING HIS FAMILY
--- NOTE | 2017-07-21 10:45 | NUR ---
THE FAMILY WITH HIM IN ROOM AND HIS VITAL NORMAL HIS BLOOD PRESSURE IS 107/53 HEART RATE IS 58 AND HIS OXYGEN IS 99% ,
--- NOTE | 2017-07-21 11:00 | NUR ---
still the pt talking to the family and the sitter beside him
--- NOTE | 2017-07-21 11:15 | NUR ---
family with him and the pt is awake
[2017-07-21] MEDS: HYDROCORTISONE SOD SUCC 100 MG/2 ML VIAL IVP SCH ×2 (11:29→21:12)
--- NOTE | 2017-07-21 11:30 | NUR ---
he is awake family with him
--- NOTE | 2017-07-21 11:45 | NUR ---
pt get CHG and change linen and he get his medication
--- NOTE | 2017-07-21 12:00 | NUR ---
pt went back to sleep and still his family in room
--- NOTE | 2017-07-21 12:16 | NUR ---
pt still sleeping and we monitor his vital sign
--- NOTE | 2017-07-21 12:45 | NUR ---
pt still sleeping
--- NOTE | 2017-07-21 13:00 | NUR ---
pt still sleeping and the sitter beside him
--- NOTE | 2017-07-21 13:15 | NUR ---
pt still sleeping and the sitter beside him
--- NOTE | 2017-07-21 13:30 | NUR ---
pt getting breathing treatment
--- NOTE | 2017-07-21 13:46 | NUR ---
pt refuse his lunch but he drink the boost
--- NOTE | 2017-07-21 14:00 | NUR ---
pt went back to sleep and the sitter beside him
--- NOTE | 2017-07-21 14:15 | NUR ---
DR. BOUCHER AT BEDSIDE FOR PSYCHE CONSULT RELATED TO SUICIDAL IDEATIONS NEW ORDER OF LEXIPRO
--- NOTE | 2017-07-21 14:15 | NUR ---
doctor came to talk to the pt
--- NOTE | 2017-07-21 14:30 | NUR ---
pt went back to sleep
--- NOTE | 2017-07-21 14:45 | NUR ---
pt still sleeping and the sitter beside him
--- NOTE | 2017-07-21 15:00 | NUR ---
pt still sleeping and the sitter beside him
--- NOTE | 2017-07-21 15:15 | NUR ---
pt sleeping and his vital is normal is blood pressure is111/48 ,his heart rate is67 and his oxygen is98%
--- NOTE | 2017-07-21 15:30 | NUR ---
pt still sleeping he look comfortably
--- NOTE | 2017-07-21 15:45 | NUR ---
RN with him now to give him medication
--- NOTE | 2017-07-21 16:00 | NUR ---
pt still sleeping and the sitter beside him
--- NOTE | 2017-07-21 16:11 | NUR ---
security came to scan the pt
--- NOTE | 2017-07-21 16:15 | NUR ---
pt get change his position and he went back to sleep
--- NOTE | 2017-07-21 16:30 | NUR ---
pt still sleep we monitor his vital sign
--- NOTE | 2017-07-21 17:00 | NUR ---
pt still sleeping and the sitter beside him
--- NOTE | 2017-07-21 17:15 | NUR ---
pt is resting his vital is 116/52 , heart rate is 67 and his oxygen is 99%
--- NOTE | 2017-07-21 17:45 | NUR ---
PT REFUSE HIS DINNER UT HE DRINK HIS BOOST
--- NOTE | 2017-07-21 18:03 | NUR ---
PT IS AWAKE HIS VITAL SIGN IS BLOOD PRESSURE IS 116/56 HIS HEART RATE IS 68 ,HIS TEMP IS 97.8 AND HIS OXYGEN IS 100%
--- NOTE | 2017-07-21 19:37 | NUR ---
ENDORSEMENT PT STABLE WITH NO COMPLAINT OF DISCOMFORT. REPORT ENDORSED TO PM RN AT BEDSIDE.
--- NOTE | 2017-07-21 20:00 | NUR ---
AWAKE, ALERT, ORIENTED X4. IN NO APPARENT DISTRESS. DENIES, PAIN/SOB. DENIES SUICIDAL IDEATION. STATES HE WAS ONLY JOKING WHEN HE BLURTED THAT OUT. URGE TO DEFECATE, SAT ON BEDPAN, NO STOOL OUT. REQUESTED TO BE DISEMPACTED. DIGITALLY DISEMPACTED BY RN WITH MOD AMOUNT OF FORMED FECAL MATTER OBTAINED. LACEY-CARE GIVEN. SKIN CARE, TERESA CARE, BACK CARE DONE. PARTIAL LINEN CHANGE. ASSISTS WITH TURNING. RAJEEV PROC WELL. ON LEVOPHED AT 6 MCG/MIN. OLGA PICC LINE DRSG D/I. ON O2 AT 3L/MIN/NC. SUNITA SCD'S IN PLACE. CONTACT ISOLATION OBSERVED.
--- NOTE | 2017-07-21 21:00 | NUR ---
ABLE TO SWALLOW PILLS ONE BY ONE. AMBIEN GIVEN PER REQUEST FOR SLEEP.
[2017-07-21] MEDS: ATORVASTATIN 20 MG TABLET PO SCH (21:08)
[2017-07-21] MEDS: MIRTAZAPINE 15 MG TABLET PO SCH (21:09)
[2017-07-21] MEDS: GABAPENTIN 100 MG CAPSULE PO SCH (21:10)
[2017-07-21] MEDS: LATANOPROST 2.5 ML DROPS (XALATAN) OP SCH (21:12)
--- NOTE | 2017-07-21 23:00 | NUR ---
DR MORRIS IN, UPDATED ON STATUS. NO NEW ORDERS GIVEN.
--- NOTE | 2017-07-21 23:05 | NUR ---
BP 116/55, LEVOPHED DECREASED TO 4 MCG/MIN.
[2017-07-22] VITALS (25 sets, daily range): BP systolic 85–135
--- NOTE | 2017-07-22 | NUR ---
DOZES ON AND OFF. BP 117/54, LEVOPHED DECREASED TO 2 MCG/MIN. ASSISTS WITH TURNING AND REPOSITIONING.
[2017-07-22] MEDS: cefTRIAXone 1 GM in D5W 50 ML IV SCH (00:45)
[2017-07-22] MEDS: LevALBUTEROL HCL 1.25 MG/0.5 ML *CONC.* VIAL.NEB (XOPENEX CONC.) INH SCH ×4 (01:00→19:00)
--- NOTE | 2017-07-22 02:00 | NUR ---
SOUNDLY ASLEEP. NO DISTRESS NOTED.
[2017-07-22] MEDS: NACL 0.9% 1,000 ML IV SCH (02:18)
--- NOTE | 2017-07-22 04:00 | NUR ---
SLEPT INTERMITTENTLY. TURNED. SINUS CELESTINA AT TIMES.
[2017-07-22] MEDS: NS IV SCH ×2 (04:43→17:10)
[2017-07-22] MEDS: TOBRAMYCIN SULFATE IV SCH ×2 (04:43→17:10)
--- NOTE | 2017-07-22 06:00 | NUR ---
UO GOOD. NO DISTRESS NOTED. DENIES PAIN. NO COMPLAINTS OFFERED AT THIS TIME. REMAINS IN GUARDED CONDITION.
[2017-07-22] MEDS: DILTIAZEM HCL 30 MG TABLET PO SCH ×3 (06:03→21:23)
[2017-07-22] MEDS: NOREPINEPHRINE BITARTRATE 4 MG in D5W 246 ML IV PRN (06:04)
[2017-07-22 06:59] LABS: BASOPHILS # (AUTO) 0.1 K/uL (0.0-0.2); BASOPHILS % (AUTO) 0.7 % (0.0-2.0); EOSINOPHILS # (AUTO) 0.1 K/uL (0.0-0.4); EOSINOPHILS % (AUTO) 1.1 % (0.0-4.0); HEMATOCRIT 26.6 % (36-54); LYMPHOCYTES # (AUTO) 1.6 K/uL (1.0-5.5); LYMPHOCYTES % (AUTO) 15.8 % (20.5-51.5); MEAN CORPUSCULAR HEMOGLOBIN 29 pg (27-31); MEAN CORPUSCULAR HGB CONC 34 % (32-36); MEAN CORPUSCULAR VOLUME 84 fL (79.0-98.0); MONOCYTES # (AUTO) 0.6 K/uL (0.0-1.0); NEUTROPHILS # (AUTO) 7.7 K/uL (1.8-7.7); NEUTROPHILS % (AUTO) 76.4 % (40.0-70.0); PLATELET COUNT (AUTO) 382 K/uL (130-430); RED BLOOD CELL COUNT(AUTO) 3.16 MIL/uL (4.2-6.2); RED CELL DISTRIBUTION WIDTH 13.6 % (9.0-15.0); WHITE BLOOD COUNT (AUTO) 10.1 K/uL (4.8-10.8)
[2017-07-22 07:10] LABS: CALCIUM 8.3 mg/dL (8.4-11.0); CREATININE 0.55 mg/dL (0.55-1.30); POTASSIUM 3.3 mmol/L (3.5-5.1)
--- NOTE | 2017-07-22 07:30 | NUR ---
AM ASSESSMENT Pt received laying in bed with eyes open. Pain stated that he is not currently in any pain, denies injury or complaints of distress at this time. Pt asked if he is currently feeling suicidal or having any thoughts of, pt responded "I was just joking when i said that a couple days ago, it was a joke, i didn't mean it". Will continue to monitor pt for suicidal ideations. Even and symmetrical rise and fall of chest, O2 saturation is 98% via 3 L N.C. Pt has a allen cath in place draining yellow urine to gravity. Bed in lowest position, pt reoriented with the use of call light. Will continue to monitor.
[2017-07-22] MEDS ORDERED: MUPIROCIN 2% TOPICAL OINTMENT 22 GM NS PRN (08:00)
[2017-07-22] MEDS ORDERED: ONDANSETRON HCL 4 MG/2 ML VIAL IVP PRN (08:00)
[2017-07-22] MEDS ORDERED: MORPHINE 4 MG/ML INJ. SYRINGE IVP PRN (08:00)
[2017-07-22] MEDS ORDERED: MAGNESIUM SULFATE 50 ML IV PRN (08:00)
[2017-07-22] MEDS ORDERED: ACETAMINOPHEN 325 MG TABLET PO PRN (08:00)
[2017-07-22] MEDS ORDERED: LORazepam 2 MG/ML VIAL IVP PRN (08:00)
[2017-07-22] MEDS ORDERED: DOCUSATE SODIUM 100 MG CAPSULE PO PRN (08:00)
[2017-07-22] MEDS: CITALOPRAM HYDROBROMIDE 20 MG TABLET PO SCH (08:54)
[2017-07-22] MEDS: DOCUSATE SODIUM 100 MG CAPSULE PO SCH ×2 (08:55→20:38)
[2017-07-22] MEDS: AMIODARONE HCL 200 MG TABLET PO SCH ×2 (08:55→20:37)
[2017-07-22] MEDS: LORATADINE 10 MG TABLET PO SCH (08:55)
[2017-07-22] MEDS: TAMSULOSIN HCL 0.4 MG CAP PO SCH ×2 (08:55→20:38)
[2017-07-22] MEDS: ASPIRIN 81 MG TAB.CHEW PO SCH (08:55)
[2017-07-22] MEDS: HYDROCORTISONE SOD SUCC 100 MG/2 ML VIAL IVP SCH ×2 (08:56→20:40)
[2017-07-22] MEDS ORDERED: ESCITALOPRAM OXALATE 10 MG TABLET PO SCH (09:00)
[2017-07-22] MEDS: LORazepam 2 MG/ML VIAL IVP PRN ×2 (09:11→18:08)
[2017-07-22] MEDS: POTASSIUM CHLORIDE 20 MEQ TAB.PRT.SR PO PRN (09:12)
[2017-07-22] MEDS: MORPHINE 4 MG/ML INJ. SYRINGE IVP PRN ×4 (09:22→21:21)
--- NOTE | 2017-07-22 10:30 | NUR ---
Suicide Pt was asked again about feelings of suicide and if so are there any plans in place? Pt adamantly denies any feelings of suicide or past feelings. Pt stated that he "was just kidding". Will continue to monitor pt.
--- NOTE | 2017-07-22 13:00 | NUR ---
Refused RT Pt stated that he would like to take a nap and to not be disturbed. informed pt that he has a breathing treatment approaching, he stated to tell RT that he does not want this one, and doesn't want to be woken up. RT was called and informed that pt refused 1300 breathing Tx.
--- NOTE | 2017-07-22 14:15 | NUR ---
Phone Thermodynamic Physicist Pt ex- Veronica at bedside wit pt. Veronica requested to have take pt's cell phone and youth care worker home with her. Pt stated that he would like for me to give her his youth care worker (which was stored at nursing station). Thermodynamic Physicist given to Veronica per pt's request.
[2017-07-22] MEDS ORDERED: POTASSIUM CHLORIDE 20 MEQ TAB.PRT.SR PO ONE (14:45)
--- NOTE | 2017-07-22 16:30 | NUR ---
CHG Provided pt with CHG, partial linen change.Provided pt with a warm shower cap and a comb out of hair. Pt tolerated well. Will continue to monitor.
--- NOTE | 2017-07-22 16:35 | NUR ---
LEVOPHED D/C of Levophed. Blood pressure stable, will continue to monitor.
[2017-07-22] MEDS: BISACODYL 10 MG/SUPPOSITORY RC PRN ×2 (18:37→21:23)
--- NOTE | 2017-07-22 19:00 | NUR ---
Closing Notes Pt resting in bed comfortably. No signs of injury or complaints of distress. Endorsed to night RN.
--- NOTE | 2017-07-22 20:00 | NUR ---
AWAKE, ALERT, ORIENTED X3. IN NO APPARENT DISTRESS. ON O2 AT 3L/MIN/NC. RIGHT UPPER ARM PICC LINE DRSG D/I. TERESA CATH PATENT DRAINING CLEAR HANNA URINE TO GRAVITY. CONTACT ISOLATION OBSERVED. SR. MULTIPLE REQUESTS. REPOSITIONED.
[2017-07-22] MEDS: MIRTAZAPINE 15 MG TABLET PO SCH (20:36)
[2017-07-22] MEDS: HYDROcodone/ACETAMIN 10-325 MG TAB PO PRN (20:38)
[2017-07-22] MEDS: GABAPENTIN 100 MG CAPSULE PO SCH (20:39)
[2017-07-22] MEDS: ZOLPIDEM TARTRATE 5 MG TABLET PO PRN (20:39)
[2017-07-22] MEDS: ATORVASTATIN 20 MG TABLET PO SCH (20:39)
--- NOTE | 2017-07-22 20:40 | NUR ---
NORCO 10-325MG PO GIVEN FOR C/O ABDOMINAL PAIN, AND AMBIEN 5 MG PO GIVEN FOR SLEEP PER PT REQUEST.
--- NOTE | 2017-07-22 21:00 | NUR ---
ABLE TO SWALLOW PILLS ONE BY ONE PER NURSE ASSIST.
[2017-07-22] MEDS: LATANOPROST 2.5 ML DROPS (XALATAN) OP SCH (21:22)
[2017-07-22] MEDS: MILK OF MAGNESIA 30 ML UDC PO PRN (21:23)
--- NOTE | 2017-07-22 21:30 | NUR ---
STILL COMPLAINING OF ABDOMINAL DISCOMFORT, MORPHINE 2 MG IVP GIVEN. MILK OF MAGNESIA AND DULCOLAX SUPPOSITORY GIVEN FOR COMPLAINT OF CONSTIPATION .
[2017-07-23] VITALS (21 sets, daily range): BP systolic 90–163
--- NOTE | 2017-07-23 | NUR ---
AWAKE. MULTIPLE REQUESTS. NEEDS MET. 1 MOD BROWN LBM, PER-CARE, BACK CARE GIVEN. Z-GUARD APPLIED, SKIN CARE RENDERED. PARTIAL LINEN CHANGE. ASSISTS WITH TURNING. RAJEEV PROC WELL.
[2017-07-23] MEDS: cefTRIAXone 1 GM in D5W 50 ML IV SCH ×2 (00:16→23:16)
[2017-07-23] MEDS: LevALBUTEROL HCL 1.25 MG/0.5 ML *CONC.* VIAL.NEB (XOPENEX CONC.) INH SCH ×4 (01:57→20:16)
--- NOTE | 2017-07-23 02:00 | NUR ---
1 LARGE FORMED BROWN STOOL DEFECATED. CLEANED. LACEY-CARE GIVEN. Z-GUARD APPLIED, SKIN CARE DONE. TERESA CARE, BACK CARE, PARTIAL LINEN CHANGE. ASSISTS WITH TURNING. RAJEEV PROC WELL.
[2017-07-23] MEDS: NACL 0.9% 1,000 ML IV SCH ×2 (02:56→16:37)
[2017-07-23] MEDS: MORPHINE 4 MG/ML INJ. SYRINGE IVP PRN ×2 (03:17→23:17)
--- NOTE | 2017-07-23 03:17 | NUR ---
MORPHINE 2 MG IVP GIVEN FOR COMPLAIN OF MAJOR DISCOMFORT.
[2017-07-23] MEDS: NS IV SCH ×2 (04:52→16:38)
[2017-07-23] MEDS: TOBRAMYCIN SULFATE IV SCH ×2 (04:52→16:38)
--- NOTE | 2017-07-23 06:00 | NUR ---
SLEPT FOR LONG PERIODS OF TIME. MOUTH BREATHER. DESATURATES AT TIMES. UO GOOD. NO COMPLAINTS OFFERED AT THIS TIME. REMAINS IN GUARDED CONDITION.
[2017-07-23] MEDS: DILTIAZEM HCL 30 MG TABLET PO SCH ×3 (06:10→22:48)
[2017-07-23 06:36] LABS: CREATININE 0.59 mg/dL (0.55-1.30); POTASSIUM 3.7 mmol/L (3.5-5.1)
[2017-07-23 06:49] LABS: BASOPHILS % (AUTO) 0.3 % (0.0-2.0); EOSINOPHILS # (AUTO) 0.1 K/uL (0.0-0.4); EOSINOPHILS % (AUTO) 0.6 % (0.0-4.0); HEMATOCRIT 27.6 % (36-54); HEMOGLOBIN 9.6 g/dL (14.0-18.0); LYMPHOCYTES # (AUTO) 1.6 K/uL (1.0-5.5); LYMPHOCYTES % (AUTO) 10.6 % (20.5-51.5); MEAN CORPUSCULAR HEMOGLOBIN 29 pg (27-31); MEAN CORPUSCULAR HGB CONC 35 % (32-36); MEAN CORPUSCULAR VOLUME 83 fL (79.0-98.0); MONOCYTES # (AUTO) 0.7 K/uL (0.0-1.0); MONOCYTES % (AUTO) 4.8 % (1.7-9.3); NEUTROPHILS # (AUTO) 12.9 K/uL (1.8-7.7); NEUTROPHILS % (AUTO) 83.7 % (40.0-70.0); PLATELET COUNT (AUTO) 429 K/uL (130-430); RED BLOOD CELL COUNT(AUTO) 3.33 MIL/uL (4.2-6.2); RED CELL DISTRIBUTION WIDTH 13.8 % (9.0-15.0); WHITE BLOOD COUNT (AUTO) 15.3 K/uL (4.8-10.8)
--- NOTE | 2017-07-23 07:23 | NUR ---
AM ROUNDS: Patient is resting in bed. No s/s of distress noted. Will continue to monitor.
[2017-07-23] MEDS: TAMSULOSIN HCL 0.4 MG CAP PO SCH ×2 (08:10→21:25)
[2017-07-23] MEDS: DOCUSATE SODIUM 100 MG CAPSULE PO SCH ×2 (08:10→21:23)
[2017-07-23] MEDS: LORATADINE 10 MG TABLET PO SCH (08:10)
[2017-07-23] MEDS: ASPIRIN 81 MG TAB.CHEW PO SCH (08:11)
[2017-07-23] MEDS: AMIODARONE HCL 200 MG TABLET PO SCH ×2 (08:11→21:24)
[2017-07-23] MEDS: HYDROCORTISONE SOD SUCC 100 MG/2 ML VIAL IVP SCH ×2 (08:12→21:24)
[2017-07-23] MEDS: CITALOPRAM HYDROBROMIDE 20 MG TABLET PO SCH (08:12)
[2017-07-23] MEDS: LORazepam 2 MG/ML VIAL IVP PRN (08:13)
--- NOTE | 2017-07-23 08:55 | NUR ---
MD ROUNDS: Dr. Gan in to see patient.
--- NOTE | 2017-07-23 10:00 | NUR ---
PATIENT RESTING: Patient resting quietly. No acute distress noted. Will continue to monitor.
--- NOTE | 2017-07-23 12:00 | NUR ---
PATIENT RESTING: Patient resting quietly. No acute distress noted. Will continue to monitor.
--- NOTE | 2017-07-23 14:00 | NUR ---
PATIENT RESTING: Patient resting quietly. No acute distress noted. Will continue to monitor.
--- NOTE | 2017-07-23 15:00 | NUR ---
MD ROUNDS: Dr. Hdez in to see patient.
--- NOTE | 2017-07-23 16:00 | NUR ---
PATIENT RESTING: Patient resting quietly. No acute distress noted. Will continue to monitor.
--- NOTE | 2017-07-23 19:08 | NUR ---
CLOSING NOTE: All needs met. No s/s of distress noted. Report given to GISSELL Castelan for continuation of care.
--- NOTE | 2017-07-23 19:30 | NUR ---
TRANSFER PT TRANSFERRED TO TELEMETRY 112A VIA BED WITH PORTABLE HEART MONITOR. PT IN STABLE CONDITION UPON TRANSFER. REPORT WILL BE GIVEN TO MECHELLE BORRERO TO ASSUME CARE. Addendum: 07/23/17 at 2137 by Annelise Moore RN REPORT GIVEN TO MECHELLE BORRERO BY ICU DAY SHIFT RN WILBUR AT BEDSIDE.
--- NOTE | 2017-07-23 19:40 | NUR ---
Admission Note Received patient from ICU with diagnosis of HEMATURIA. Initial Plan of Care discussed-patient verbalized understanding. Oriented to room, call light, pain management and safety. PATIENT CURRENTLY ON 3L NC, SATURATION AT 98%. SCDs ON BILATERAL LOWER EXTREMITIES. INFORMATION ASSURANCE ENGINEER AT THE BEDSIDE TO PROVIDE INCONTINENCE CARE FOR THE PATIENT.
[2017-07-23] MEDS: ATORVASTATIN 20 MG TABLET PO SCH (21:00)
--- NOTE | 2017-07-23 21:15 | NUR ---
Patient awake alert verbally indicative TERESA catheter patent Dx HEMATURIA , free flow of rich urine is noted to BSDB assist patient for position change no SOB activity tolerated 02 SAT 96 % on NC @ 3 LPM .
[2017-07-23] MEDS: LATANOPROST 2.5 ML DROPS (XALATAN) OP SCH (21:23)
[2017-07-23] MEDS: GABAPENTIN 100 MG CAPSULE PO SCH (21:23)
[2017-07-23] MEDS: ZOLPIDEM TARTRATE 5 MG TABLET PO PRN (21:24)
[2017-07-23] MEDS: MIRTAZAPINE 15 MG TABLET PO SCH (21:24)
--- NOTE | 2017-07-24 00:03 | NUR ---
MORPHINE SULFATE 2 MG IVP administer for general discomfort & helpful , PT resting .
--- NOTE | 2017-07-24 00:05 | NUR ---
Personal Belongings list reviewed with patient & signed @ the bedside .
--- NOTE | 2017-07-24 00:06 | NUR ---
ROCEPHIN 1 GM IVPB administer as ordered skin dry warm no ALLERGIC REACTION chest movement symmetrical / .
[2017-07-24] MEDS: LevALBUTEROL HCL 1.25 MG/0.5 ML *CONC.* VIAL.NEB (XOPENEX CONC.) INH SCH ×4 (01:00→20:21)
--- NOTE | 2017-07-24 05:26 | NUR ---
Reposition & Turning off loading with pillows , kept clean also dry as needed on NC @ 3 LPM respirations regular unlabored call yeung with PT .
[2017-07-24] MEDS: NS IV SCH ×2 (05:43→17:51)
[2017-07-24] MEDS: TOBRAMYCIN SULFATE IV SCH ×2 (05:43→17:51)
[2017-07-24] MEDS: DILTIAZEM HCL 30 MG TABLET PO SCH ×3 (05:44→23:10)
[2017-07-24 06:45] LABS: BASOPHILS # (AUTO) 0.1 K/uL (0.0-0.2); BASOPHILS % (AUTO) 0.9 % (0.0-2.0); EOSINOPHILS # (AUTO) 0.5 K/uL (0.0-0.4); EOSINOPHILS % (AUTO) 4.1 % (0.0-4.0); HEMOGLOBIN 9.4 g/dL (14.0-18.0); LYMPHOCYTES # (AUTO) 2.6 K/uL (1.0-5.5); LYMPHOCYTES % (AUTO) 22.3 % (20.5-51.5); MEAN CORPUSCULAR HEMOGLOBIN 28 pg (27-31); MEAN CORPUSCULAR HGB CONC 33 % (32-36); MONOCYTES # (AUTO) 0.8 K/uL (0.0-1.0); MONOCYTES % (AUTO) 6.6 % (1.7-9.3); NEUTROPHILS # (AUTO) 7.8 K/uL (1.8-7.7); NEUTROPHILS % (AUTO) 66.1 % (40.0-70.0); PLATELET COUNT (AUTO) 466 K/uL (130-430); RED BLOOD CELL COUNT(AUTO) 3.39 MIL/uL (4.2-6.2); RED CELL DISTRIBUTION WIDTH 13.9 % (9.0-15.0); WHITE BLOOD COUNT (AUTO) 11.8 K/uL (4.8-10.8)
[2017-07-24 06:55] LABS: MEAN CORPUSCULAR VOLUME 85 fL (79.0-98.0)
[2017-07-24 07:05] LABS: CALCIUM 8.8 mg/dL (8.4-11.0); CREATININE 0.67 mg/dL (0.55-1.30); POTASSIUM 3.2 mmol/L (3.5-5.1)
--- NOTE | 2017-07-24 07:35 | NUR ---
Initial Note Received report from the night nurse Chris. Pt AOX4. No sign of distress noted at this time. Bed is at lowest position with bed alarm on. Call light within reach. Pt on ISO MDRO of the blood.
[2017-07-24 07:55] VITALS: BP_SYST 125
[2017-07-24] MEDS: HYDROCORTISONE SOD SUCC 100 MG/2 ML VIAL IVP SCH ×2 (09:11→20:37)
[2017-07-24] MEDS: DOCUSATE SODIUM 100 MG CAPSULE PO SCH ×2 (09:11→20:38)
[2017-07-24] MEDS: AMIODARONE HCL 200 MG TABLET PO SCH ×2 (09:12→20:38)
[2017-07-24] MEDS: ASPIRIN 81 MG TAB.CHEW PO SCH (09:12)
[2017-07-24] MEDS: TAMSULOSIN HCL 0.4 MG CAP PO SCH ×2 (09:12→20:39)
[2017-07-24] MEDS: CITALOPRAM HYDROBROMIDE 20 MG TABLET PO SCH (09:12)
[2017-07-24] MEDS: LORATADINE 10 MG TABLET PO SCH (09:14)
[2017-07-24] MEDS: POTASSIUM CHLORIDE 20 MEQ TAB.PRT.SR PO PRN (09:15)
[2017-07-24 11:30] VITALS: BP_SYST 125
--- NOTE | 2017-07-24 11:36 | NUR ---
RN Rounds Pt awake and does not complain of any pain or discomfort. No sign of distress noted at this time. Bed is at lowest position with bed alarm on. Call light within reach.
[2017-07-24] MEDS: NACL 0.9% 1,000 ML IV SCH (12:02)
[2017-07-24] MEDS: ZOLPIDEM TARTRATE 5 MG TABLET PO PRN (12:09)
--- NOTE | 2017-07-24 14:47 | NUR ---
DC planning: Rec'd order for [facility] evaluation--PT notes entered this afternoon by PT--faxed referral to [facility] fax#[phone]--Called [facility] [phone]--s/w Karli in intake--they have no male beds at this time and she is aware our charge nurse Cameron is calling ID to determine isolation needs for this pt as all cultures are negative--Karli will review case tomorrow. JAYY BORRERO Addendum: 07/24/17 at 1516 by Cary Woo RN DC Planning: Per Karli at [facility], pt is not a candidate for them as pt has resided at [facility] x2 yrs and is low-functioning....pt would have to dc home from [facility] also as they cannot dc to SNF per their Medicare guidelines--JAYY BORRERO
[2017-07-24 15:28] VITALS: BP_SYST 109
--- NOTE | 2017-07-24 15:37 | NUR ---
RN Rounds Pt resting and does not shows any sign of distress at this time. Bed is at lowest position with bed alarm on. Call light within reach.
--- NOTE | 2017-07-24 18:30 | NUR ---
Closing Note Pt AOX4. No sign of distress noted at this time. Bed is at lowest position with bed alarm on. Call light within reach. Pt is on ISO for MDRO of the blood. As per Dr. Bernal he has seen a report from previous blood culture from [facility] from where the pt came from. As per Dr. Bernal in that report the pt was a positive for MDRO of the blood. He knows that our lab blood cultures shows negative, but he still want to keep the pt on ISO for MDRO of the blood.
--- NOTE | 2017-07-24 19:50 | NUR ---
ROUNDS PATIENT RESTING COMFORTABLY IN BED, NOT IN DISTRESS, VITALS STABLE. DENIES ANY PAIN AND DISCOMFORT AT THIS TIME. ASSESSMENT DONE AND DOCUMENTED. SEE FLOWSHEET. NEEDS ATTENDED. TURNED AND REPOSITIONED FOR COMFORT AND TO PREVENT SKIN BREAKDOWN. SAFETY AND FALL PRECAUTION MEASURES IN PLACED. BED IN LOW AND LOCKED POSITION. BED ALARM ON. CALL LIGHT PLACED WITHIN REACH.
[2017-07-24 20:00] VITALS: BP_SYST 105
[2017-07-24] MEDS: MIRTAZAPINE 15 MG TABLET PO SCH (20:38)
[2017-07-24] MEDS: GABAPENTIN 100 MG CAPSULE PO SCH (20:39)
[2017-07-24] MEDS: ATORVASTATIN 20 MG TABLET PO SCH (20:39)
--- NOTE | 2017-07-24 21:15 | NUR ---
MEDICATION DUE MEDICATIONS GIVEN ORDERED, TOLERATED WELL. WILL CONTINUE TO MONITOR.
[2017-07-24] MEDS: LATANOPROST 2.5 ML DROPS (XALATAN) OP SCH (23:10)
[2017-07-24] MEDS: cefTRIAXone 1 GM in D5W 50 ML IV SCH (23:11)
--- NOTE | 2017-07-25 00:10 | NUR ---
PATIENT RESTING: Patient resting quietly. No acute distress noted. Vital signs within normal range.
[2017-07-25 00:59] VITALS: BP_SYST 104
[2017-07-25] MEDS: LevALBUTEROL HCL 1.25 MG/0.5 ML *CONC.* VIAL.NEB (XOPENEX CONC.) INH SCH ×4 (01:18→20:28)
--- NOTE | 2017-07-25 02:15 | NUR ---
ROUNDS PATIENT ASLEEP, NO SOB NOR PAIN AND DISCOMFORT NOTED. WILL CONTINUE TO MONITOR.
--- NOTE | 2017-07-25 04:03 | NUR ---
PATIENT RESTING: Patient resting quietly. No acute distress noted. Vital signs within normal range.
[2017-07-25] MEDS: TOBRAMYCIN SULFATE IV SCH ×2 (05:12→17:35)
[2017-07-25] MEDS: NS IV SCH ×2 (05:12→17:35)
[2017-07-25] MEDS: DILTIAZEM HCL 30 MG TABLET PO SCH ×3 (05:13→23:42)
[2017-07-25 07:12] LABS: BASOPHILS # (AUTO) 0.1 K/uL (0.0-0.2); BASOPHILS % (AUTO) 0.7 % (0.0-2.0); EOSINOPHILS # (AUTO) 0.2 K/uL (0.0-0.4); EOSINOPHILS % (AUTO) 2.1 % (0.0-4.0); HEMATOCRIT 27.9 % (36-54); HEMOGLOBIN 9.5 g/dL (14.0-18.0); LYMPHOCYTES % (AUTO) 17.3 % (20.5-51.5); MEAN CORPUSCULAR HEMOGLOBIN 29 pg (27-31); MEAN CORPUSCULAR HGB CONC 34 % (32-36); MEAN CORPUSCULAR VOLUME 85 fL (79.0-98.0); MONOCYTES # (AUTO) 0.6 K/uL (0.0-1.0); MONOCYTES % (AUTO) 5.3 % (1.7-9.3); NEUTROPHILS # (AUTO) 8.8 K/uL (1.8-7.7); NEUTROPHILS % (AUTO) 74.6 % (40.0-70.0); PLATELET COUNT (AUTO) 498 K/uL (130-430); RED BLOOD CELL COUNT(AUTO) 3.29 MIL/uL (4.2-6.2); RED CELL DISTRIBUTION WIDTH 13.7 % (9.0-15.0); WHITE BLOOD COUNT (AUTO) 11.7 K/uL (4.8-10.8)
--- NOTE | 2017-07-25 07:25 | NUR ---
Initial notes: Patient on bed awake, alert and oriented. Stable. I.V. access on OLGA PICC line. Discussed plan of care. Safety measures in placed. Call light within reach. Report received from GISSELL Walter.
[2017-07-25 07:32] LABS: CALCIUM 8.5 mg/dL (8.4-11.0); CREATININE 0.64 mg/dL (0.55-1.30); POTASSIUM 3.3 mmol/L (3.5-5.1)
[2017-07-25 08:15] VITALS: BP_SYST 120
[2017-07-25] MEDS: HYDROCORTISONE SOD SUCC 100 MG/2 ML VIAL IVP SCH ×2 (09:43→21:19)
[2017-07-25] MEDS: ASPIRIN 81 MG TAB.CHEW PO SCH (09:43)
[2017-07-25] MEDS: CITALOPRAM HYDROBROMIDE 20 MG TABLET PO SCH (09:43)
[2017-07-25] MEDS: DOCUSATE SODIUM 100 MG CAPSULE PO SCH ×2 (09:43→21:18)
[2017-07-25] MEDS: TAMSULOSIN HCL 0.4 MG CAP PO SCH ×2 (09:44→21:18)
[2017-07-25] MEDS: AMIODARONE HCL 200 MG TABLET PO SCH ×2 (09:44→21:18)
[2017-07-25] MEDS: LORATADINE 10 MG TABLET PO SCH (09:44)
[2017-07-25] MEDS: NACL 0.9% 1,000 ML IV SCH (09:53)
--- NOTE | 2017-07-25 09:58 | NUR ---
rounds: patient on the bed. medication crushed and given with applesauce. able to tolerate.
--- NOTE | 2017-07-25 09:59 | NUR ---
CT Scan: Patient went to radiology for CT Scan.
--- NOTE | 2017-07-25 10:26 | NUR ---
Patient back: Patient back in his room. no distress noted.
[2017-07-25 11:38] VITALS: BP_SYST 120
[2017-07-25 12:10] VITALS: BP_SYST 116
--- NOTE | 2017-07-25 12:30 | NUR ---
rounds: patient on bed resting. no distress noted.
[2017-07-25] MEDS: MORPHINE 4 MG/ML INJ. SYRINGE IVP PRN ×2 (13:37→23:41)
--- NOTE | 2017-07-25 13:42 | NUR ---
rounds: patient complained of l shoulder pain. Morphine 2mg IVP given. pain 7/10. Continue to monitor.
[2017-07-25] MEDS: POTASSIUM CHLORIDE 20 MEQ TAB.PRT.SR PO PRN (14:14)
--- NOTE | 2017-07-25 14:20 | NUR ---
rounds: patient resting. no distress noted.
--- NOTE | 2017-07-25 15:00 | NUR ---
PICC line dressing: Picc line dressing changed, observed sterile technique. no redness on the i.v. site.
[2017-07-25 16:10] VITALS: BP_SYST 118
--- NOTE | 2017-07-25 16:30 | NUR ---
rounds: patient on bed. talking to the family. no distress noted.
--- NOTE | 2017-07-25 17:59 | NUR ---
rounds: patient resting on bed. no distress noted.
--- NOTE | 2017-07-25 18:28 | NUR ---
closing notes: Patient on bed resting. Stable. Needs attended. Gonzales catheter in placed and draining with yellow urine. SCD bilateral in placed. Safety measures in placed. Call light within reach. Report will be given to procurement buyer.
--- NOTE | 2017-07-25 19:55 | NUR ---
ROUNDS PATIENT IN BED, WATCHING TV, NOT IN DISTRESS, VITALS STABLE. DENIES ANY PAIN AND DISCOMFORT AT THIS TIME. ASSESSMENT DONE AND DOCUMENTED. SEE FLOWSHEET. NEEDS ATTENDED TO. SAFETY AND FALL PRECAUTION MEASURES IN PLACED. BED ALARM ON. CALL LIGHT PLACED WITHIN REACH.
[2017-07-25 20:00] VITALS: BP_SYST 110
--- NOTE | 2017-07-25 21:10 | NUR ---
MEDICATION DUE MEDICATIONS GIVEN ORDERED, TOLERATED WELL. WILL CONTINUE TO MONITOR.
[2017-07-25] MEDS: MIRTAZAPINE 15 MG TABLET PO SCH (21:17)
[2017-07-25] MEDS: GABAPENTIN 100 MG CAPSULE PO SCH (21:18)
[2017-07-25] MEDS: ATORVASTATIN 20 MG TABLET PO SCH (21:18)
[2017-07-25] MEDS: LATANOPROST 2.5 ML DROPS (XALATAN) OP SCH (21:19)
[2017-07-25] MEDS: HYDROcodone/ACETAMIN 10-325 MG TAB PO PRN (22:19)
[2017-07-25] MEDS: cefTRIAXone 1 GM in D5W 50 ML IV SCH (23:48)
--- NOTE | 2017-07-26 00:12 | NUR ---
PATIENT RESTING: Patient resting quietly. No acute distress noted. Vital signs within normal range.
[2017-07-26] MEDS: ZOLPIDEM TARTRATE 5 MG TABLET PO PRN (00:59)
[2017-07-26] MEDS: LevALBUTEROL HCL 1.25 MG/0.5 ML *CONC.* VIAL.NEB (XOPENEX CONC.) INH SCH ×3 (01:20→19:51)
[2017-07-26 01:25] VITALS: BP_SYST 120
--- NOTE | 2017-07-26 02:14 | NUR ---
ROUNDS PATIENT ASLEEP, NO SOB NOTED NOR PAIN AND DISCOMFORT, WILL CONTINUE TO MONITOR.
--- NOTE | 2017-07-26 04:11 | NUR ---
PATIENT RESTING: Patient resting quietly. No acute distress noted. Vital signs within normal range.
[2017-07-26] MEDS: NACL 0.9% 1,000 ML IV SCH ×2 (05:12→23:27)
[2017-07-26] MEDS: NS IV SCH (05:13)
[2017-07-26] MEDS: TOBRAMYCIN SULFATE IV SCH (05:13)
[2017-07-26] MEDS: DILTIAZEM HCL 30 MG TABLET PO SCH ×3 (05:13→21:36)
--- NOTE | 2017-07-26 06:50 | NUR ---
CLOSING NOTES PATIENT AWAKE, VITALS STABLE, NO PAIN AND DISCOMFORT AT THIS TIME. ALL NEEDS ATTENDED TO. SAFETY MEASURES MAINTAINED. CALL LIGHT PLACED WITHIN REACH.
[2017-07-26 07:14] LABS: BASOPHILS # (AUTO) 0.1 K/uL (0.0-0.2); BASOPHILS % (AUTO) 0.7 % (0.0-2.0); EOSINOPHILS # (AUTO) 0.2 K/uL (0.0-0.4); HEMATOCRIT 24.9 % (36-54); HEMOGLOBIN 8.4 g/dL (14.0-18.0); LYMPHOCYTES # (AUTO) 2.1 K/uL (1.0-5.5); MEAN CORPUSCULAR HEMOGLOBIN 29 pg (27-31); MEAN CORPUSCULAR HGB CONC 34 % (32-36); MEAN CORPUSCULAR VOLUME 85 fL (79.0-98.0); MONOCYTES # (AUTO) 0.7 K/uL (0.0-1.0); MONOCYTES % (AUTO) 6.7 % (1.7-9.3); NEUTROPHILS # (AUTO) 6.7 K/uL (1.8-7.7); NEUTROPHILS % (AUTO) 69.6 % (40.0-70.0); PLATELET COUNT (AUTO) 475 K/uL (130-430); RED BLOOD CELL COUNT(AUTO) 2.94 MIL/uL (4.2-6.2); RED CELL DISTRIBUTION WIDTH 14.1 % (9.0-15.0); WHITE BLOOD COUNT (AUTO) 9.8 K/uL (4.8-10.8)
--- NOTE | 2017-07-26 07:25 | NUR ---
Initial notes: Patient on bed awake, alert and oriented. Stable. On oxygen @ 2l. via NC. Discussed plan of care. Safety measures in placed. Call light within reach. Report received from GISSELL Walter at bedside.
[2017-07-26 07:35] LABS: CALCIUM 8.5 mg/dL (8.4-11.0); CREATININE 0.72 mg/dL (0.55-1.30); POTASSIUM 3.9 mmol/L (3.5-5.1)
[2017-07-26 07:57] VITALS: BP_SYST 101
[2017-07-26] MEDS: HYDROCORTISONE SOD SUCC 100 MG/2 ML VIAL IVP SCH ×2 (08:39→21:28)
[2017-07-26] MEDS: AMIODARONE HCL 200 MG TABLET PO SCH ×2 (08:40→21:27)
[2017-07-26] MEDS: DOCUSATE SODIUM 100 MG CAPSULE PO SCH ×2 (08:40→21:27)
[2017-07-26] MEDS: TAMSULOSIN HCL 0.4 MG CAP PO SCH ×2 (08:40→21:27)
[2017-07-26] MEDS: HYDROcodone/ACETAMIN 10-325 MG TAB PO PRN (08:41)
[2017-07-26] MEDS: ASPIRIN 81 MG TAB.CHEW PO SCH (08:41)
[2017-07-26] MEDS: CITALOPRAM HYDROBROMIDE 20 MG TABLET PO SCH (08:41)
[2017-07-26] MEDS: LORATADINE 10 MG TABLET PO SCH (08:42)
--- NOTE | 2017-07-26 08:48 | NUR ---
rounds: patient resting on bed. complained of leg pain 08/15. Due pain meds given oral.
[2017-07-26] MEDS: ACETAMINOPHEN 325 MG TABLET PO PRN (10:04)
--- NOTE | 2017-07-26 10:08 | NUR ---
rounds: patient on bed resting. complaining of head ache. due pain meds given oral.
--- NOTE | 2017-07-26 10:15 | NUR ---
Teresa rounds: Seen by Dr. Aleman with new order.
--- NOTE | 2017-07-26 10:40 | NUR ---
rounds: patient sleeping. no distress noted.
[2017-07-26 12:05] VITALS: BP_SYST 110
--- NOTE | 2017-07-26 12:45 | NUR ---
PHYSICAL THERAPY CO-SIGN The Physical Therapy Progress Notes documented by Fishing Tackle Repairer have been reviewed. I concur with documentation of this ASSISTANT TODDLER TEACHER. Plan: continue PT as per plan of care if he remains in this hospital. Reviewed/Co-Signed by: Tonia Cannon, PT Documentation Done by: Jermain Lock, ASSISTANT TODDLER TEACHER Addendum: 07/26/17 at 1519 by Tonia Cannon PT Amended: Links added.
[2017-07-26] MEDS: MORPHINE 4 MG/ML INJ. SYRINGE IVP PRN ×3 (14:09→23:30)
[2017-07-26 14:10] VITALS: BP_SYST 115
--- NOTE | 2017-07-26 14:14 | NUR ---
Headache: patient complaining of headache. Due Morphine 2mg pain meds given thru ivp. 10/15
--- NOTE | 2017-07-26 14:45 | NUR ---
DC Planning: late entry: 1100 am, requesting blank Reese RN and GISSELL Zayas to f/u clearance from Specification Writer and I/D. >> CM updated dcp to Shira , prateekr and RONDA at bedside. Dtr made aware, [facility] can not accept the pt dt pt. is low functioning for rehab. Dtr agreed for pt. returning back to [facility]. -- Dr Gan made aware. >>CM LM to dr. Gan to call dtr back re FC removal request dt infection concerning. Addendum: 07/26/17 at 1455 by Karen Singh RN >> Returning call from dr. Gan, given order to dc f/c today and dcp to [facility] tomorrow. Addendum: 07/26/17 at 1520 by Karen Singh RN >>Verified with dr. Gan re allen cath removal: per dr. Tinsley, Urologist note on 07/18 : 1. BPH w/ urinary retention: Continue Tamsulosin 0.4mg/hs. Maintain allen catheter. Change q 3 wks. 2. Hematuria: likely due to malpositioned previous catheter balloon inflated in urethra causing urethral trauma; resolved. Recommend manually irrigating allen catheter prn clots, poor output, or recurrence/worsening of hematuria. >>CM received to cancel previous order for FC removal.
[2017-07-26 15:09] VITALS: BP_SYST 110
--- NOTE | 2017-07-26 15:12 | NUR ---
rounds: patient on bed resting. no distress noted.
--- NOTE | 2017-07-26 17:00 | NUR ---
rounds: patient on bed sleeping. no distress noted.
[2017-07-26 18:00] VITALS: BP_SYST 117
--- NOTE | 2017-07-26 18:38 | NUR ---
Closing notes: Patient on bed sleeping. Stable. Needs attended. On isolation. PICC line in placed. Gonzales cath in placed draining well by gravity. Safety measures in placed. Call light within reach. Report will be given to scene shifter.
--- NOTE | 2017-07-26 18:55 | NUR ---
Isolation: July D/C isolation per Dr. Cloud.
--- NOTE | 2017-07-26 20:00 | NUR ---
INITIAL NOTES RECEIVED PATIENT ON BED AWAKE AND RESTING WATCHING TV BREATHING EVEN AND UNLABORED, NO SOB NOTED. PATIENT ENCOURAGED DEEP BREATHING EXERCISES AND RELAXATION, WITH PICC AT THE OLGA CLEAN DRY INTACT, WITH TERESA CATH DRAINING TO GRAVITY INTACT CLEAN AND DRY. EXPLAINED THE PLAN OF CARE AND VERBALIZED UNDERSTANDING. WILL CONTINUE TO MONITOR CALL LIGHT WITHIN REACH.
[2017-07-26] MEDS: ATORVASTATIN 20 MG TABLET PO SCH (21:26)
[2017-07-26] MEDS: LATANOPROST 2.5 ML DROPS (XALATAN) OP SCH (21:26)
[2017-07-26] MEDS: MIRTAZAPINE 15 MG TABLET PO SCH (21:27)
[2017-07-26] MEDS: GABAPENTIN 100 MG CAPSULE PO SCH (21:27)
--- NOTE | 2017-07-26 22:15 | NUR ---
RN ROUNDS PATIENT ON BED AWAKE AND RESTING, ON STABLE CONDITION, PATIENT STATED THAT PAIN LEVEL IS BETTER WILL CONTINUE TO MONITOR CALL LIGHT WITHIN REACH.
[2017-07-26] MEDS: cefTRIAXone 1 GM in D5W 50 ML IV SCH (23:27)
--- NOTE | 2017-07-27 00:04 | NUR ---
RN ROUNDS PATIENT ON BED SLEEPING AND RESTING ON STABLE CONDITION, NO PAIN NOTED NO SOB NOTED. MAINTAINED SAFETY PRECAUTION. CALL LIGHT WITHIN REACH.
[2017-07-27 00:31] VITALS: BP_SYST 127
[2017-07-27] MEDS: LevALBUTEROL HCL 1.25 MG/0.5 ML *CONC.* VIAL.NEB (XOPENEX CONC.) INH SCH ×3 (00:37→13:15)
[2017-07-27 00:51] VITALS: BP_SYST 113
--- NOTE | 2017-07-27 02:16 | NUR ---
RN ROUNDS PATIENT ON BED SLEEPING AND RESTING BREATHING NO SOB NOTED, MAINTAINED SAFETY PRECAUTION, TURNED FROM SIDE TO SIDE WILL CONTINUE TO MONITOR CALL LIGHT WITHIN REACH
--- NOTE | 2017-07-27 04:22 | NUR ---
RN ROUNDS PATIENT ON BED SLEEPING AND RESTING, ON STABLE CONDITION, NO SOB NOTED, NO PAIN NOTED. MAINTAINED SAFETY PRECAUTIONS WILL CONTINUE TO MONITOR CALL LIGHT WITHIN REACH.
[2017-07-27] MEDS: DILTIAZEM HCL 30 MG TABLET PO SCH ×2 (05:06→14:59)
[2017-07-27] MEDS: MILK OF MAGNESIA 30 ML UDC PO PRN (05:06)
--- NOTE | 2017-07-27 06:27 | NUR ---
CLOSING NOTES PATIENT ON BED AWAKE AND RESTING WATCHING TV BREATHING EVEN AND UNLABORED WITH MAINTAINED POSITION OF COMFORT, MAINTAINED SAFETY PRECAUTION, TURNED FROM SIDE TO SIDE WITH PILLOW SUPPORT, HEELS FLOATING. ENCOURAGED DEEP BREATHING EXERCISES, MAINTAINED SCD'S. PATIENT COMPLAINED OF NOT HAVING A BM FOR DAYS, MEDICATION GIVEN, TOLERATED WELL. PATIENT WITH PICC AT THE RIGHT UPPER ARM CLEAN DRY INTACT, WITH TERESA DRAINING TO GRAVITY WITH YELLOW URINE OUTPUT. WILL CONTINUE TO MONITOR CALL LIGHT WITHIN REACH. WILL GIVE REPORT TO AM NURSE
[2017-07-27 07:27] LABS: BASOPHILS # (AUTO) 0.2 K/uL (0.0-0.2); BASOPHILS % (AUTO) 1.5 % (0.0-2.0); EOSINOPHILS # (AUTO) 0.2 K/uL (0.0-0.4); EOSINOPHILS % (AUTO) 1.6 % (0.0-4.0); HEMATOCRIT 28.8 % (36-54); HEMOGLOBIN 9.5 g/dL (14.0-18.0); LYMPHOCYTES # (AUTO) 1.8 K/uL (1.0-5.5); MEAN CORPUSCULAR HEMOGLOBIN 28 pg (27-31); MEAN CORPUSCULAR HGB CONC 33 % (32-36); MEAN CORPUSCULAR VOLUME 85 fL (79.0-98.0); MONOCYTES # (AUTO) 0.7 K/uL (0.0-1.0); NEUTROPHILS # (AUTO) 8.2 K/uL (1.8-7.7); NEUTROPHILS % (AUTO) 74.9 % (40.0-70.0); PLATELET COUNT (AUTO) 511 K/uL (130-430); RED BLOOD CELL COUNT(AUTO) 3.39 MIL/uL (4.2-6.2); RED CELL DISTRIBUTION WIDTH 14.4 % (9.0-15.0); WHITE BLOOD COUNT (AUTO) 11.1 K/uL (4.8-10.8)
[2017-07-27 07:38] LABS: CALCIUM 8.6 mg/dL (8.4-11.0); CREATININE 0.71 mg/dL (0.55-1.30); POTASSIUM 3.9 mmol/L (3.5-5.1)
--- NOTE | 2017-07-27 07:50 | NUR ---
Opening Note Patient a/ox0 and non-verbal. Bilateral lower and upper extremities contracted. Tube feeding running at 40ml/hr. Residuals of 20ml noted. Currently receiving breathing treatment with RT at bedside. Vent settings: AC 12, TV 500, FiO2 30, and peep 5. Vital signs taken. Extensions of RN, PRODUCT MANAGEMENT ANALYST and extension service specialist in charge written on white board. Plan of care verbalized to patient. Patient unable to verbalize understanding. Safety precautions in order, call light in reach (patient unable to use), all three side rails raised and air mattress on. Addendum: 07/27/17 at 1005 by Nicole Fung RN wrong patient
--- NOTE | 2017-07-27 07:55 | NUR ---
Opening note Patient a/ox3. Complains of pain 3/10 on bilateral lower extremities, but states he does not want pain medications. No difficulty breathing on 2L O2 via NC. Gonzales Catheter draining to gravity. IV fluids infusing on right upper arm PICC line. Vital signs taken. Extensions of RN, HEAD OF CONSERVATION and charger operator written on white board. Plan of care discussed with patient. All questions and concerns addressed at this time. Safety precautions in order, call light in reach and bed alarm on.
[2017-07-27] MEDS: LORATADINE 10 MG TABLET PO SCH (08:05)
[2017-07-27] MEDS: TAMSULOSIN HCL 0.4 MG CAP PO SCH (08:06)
[2017-07-27] MEDS: AMIODARONE HCL 200 MG TABLET PO SCH (08:07)
[2017-07-27] MEDS: HYDROCORTISONE SOD SUCC 100 MG/2 ML VIAL IVP SCH (08:08)
[2017-07-27] MEDS: DOCUSATE SODIUM 100 MG CAPSULE PO SCH (08:08)
[2017-07-27] MEDS: ASPIRIN 81 MG TAB.CHEW PO SCH (08:08)
--- NOTE | 2017-07-27 08:08 | NUR ---
Meds 0900 medications administered at this time with applesauce. Patient informed of all medications and reason for taking medication. Common side effects discussed with patient.
[2017-07-27 08:15] VITALS: BP_SYST 112
[2017-07-27] MEDS ORDERED: CITALOPRAM HYDROBROMIDE 20 MG TABLET PO SCH (09:00)
--- NOTE | 2017-07-27 10:10 | NUR ---
Rounds Patient sitting in bed, watching television. Repositioned for comfort.
--- NOTE | 2017-07-27 11:30 | NUR ---
PHYSICAL THERAPY CO-SIGN The Physical Therapy Progress Notes documented by Rotary Soil Stabilizer Operator have been reviewed. I concur with the documentation of this RESERVOIR ENGINEERING CONSULTANT. Plan: continue PT as per plan of care if he remains in this hospital. Reviewed/Co-Signed by: Tonia Cannon, PT Documentation Done by: Jermain Lock, RESERVOIR ENGINEERING CONSULTANT Addendum: 07/27/17 at 1522 by Tonia Cannon PT Amended: Links added.
--- NOTE | 2017-07-27 11:50 | NUR ---
Dr Malik gee Notified of bed availability at [place]. States he will discharge patient.
[2017-07-27 12:53] VITALS: BP_SYST 114
--- NOTE | 2017-07-27 13:25 | NUR ---
PATIENT RESTING: Patient resting quietly. No acute distress noted. Vital signs within normal range.
--- NOTE | 2017-07-27 14:15 | NUR ---
LOUIE RE-EVALUATION: Patient re-evaluated for a low Louie score of 17. Patient was awake, alert, oriented, and received in a Abdir[place]ak bed with a mattress. Patient is unable to turn in bed independently. Skin is fair; buttocks have erythema from IAD. Recommend encourage and assist patient as needed with repositioning every 2 hours with pillow support and off-load pressure areas with pillows for pressure re-distribution. Elevate, off-load and float bilateral heels with pillows. Use moisture barrier cream on buttocks and other moisture susceptible areas QID and as needed for soiling. Perform skin care and monitor skin integrity Q shift.
--- NOTE | 2017-07-27 14:35 | NUR ---
Superintendent Renting Managing [facility] contacted [facility] to follow up with pts placement. [facility] spoke with Yuli who confirmed pts bed ([id number]) is still on hold. WIP informed her pt will need to continue rocephin until 08/10/2017. WIP faxed pts inquiry and received a fax confirmation. [facility] contacted pts daughter Amy to inform her pt will be returning to [facility]. Pts daughter agree. Patient Choice form was completed via phone and was filed into pts chart. [facility] arranged transportation with [facility], [facility] with garbage pick up man time at 5:45pm. [facility] informed pts nurse Nicole
--- NOTE | 2017-07-27 14:40 | NUR ---
Transfer Patient notified of Transfer to [place]. Number for report given to RN . Patient aware of ambulance warp picker time at 1745.
[2017-07-27] MEDS: ACETAMINOPHEN 325 MG TABLET PO PRN (14:59)
[2017-07-27 16:14] VITALS: BP_SYST 111
[2017-07-27 16:32] VITALS: BP_SYST 112
--- NOTE | 2017-07-27 17:50 | NUR ---
Bed Bath Patient Given a bed bath and new linens provided for transfer to [place].
--- NOTE | 2017-07-27 18:27 | NUR ---
D/C Patient Patient given medication reconciliation form and D/C instructions. Exit Care provided. Patient verbalized understanding. MD discussed with patient the results and treatment provided. Patient in stable condition, ID band removed. PICC line in right upper arm for IV antibiotics. Gonzales Catheter still infusing to gravity. Patient educated on pain management. All belongings sent with patient. Patient left facility via [place].
== END 2017-07-27 18:27 | DRG 871 ==
LOC: SMU 19:36 → STU 22:24 → SIC 07-18 02:26 → STU 07-23 19:30
PROVIDERS: ADMIT Family Medicine; ATTEND Family Medicine
PROC: 02HV33Z Insertion of Infusion Device into Superior Vena Cava, Percutaneous Approach (ICD-10-PCS; principal; 2017-07-18)
DX: A41.9 Sepsis, unspecified organism (principal); I21.A1 Myocardial infarction type 2; E43 Unspecified severe protein-calorie malnutrition; N17.0 Acute kidney failure with tubular necrosis; R65.21 Severe sepsis with septic shock; J69.0 Pneumonitis due to inhalation of food and vomit; I47.1 Supraventricular tachycardia; R45.851 Suicidal ideations; I48.91 Unspecified atrial fibrillation; E87.1 Hypo-osmolality and hyponatremia; N13.2 Hydronephrosis with renal and ureteral calculous obstruction; N39.0 Urinary tract infection, site not specified; T83.098A Other mechanical complication of other urinary catheter, initial encounter; K74.60 Unspecified cirrhosis of liver; D64.9 Anemia, unspecified; E78.5 Hyperlipidemia, unspecified; F17.210 Nicotine dependence, cigarettes, uncomplicated; F29 Unspecified psychosis not due to a substance or known physiological condition; F32.9 Major depressive disorder, single episode, unspecified; H40.9 Unspecified glaucoma; I25.10 Atherosclerotic heart disease of native coronary artery without angina pectoris; K56.41 Fecal impaction; K80.20 Calculus of gallbladder without cholecystitis without obstruction; M16.0 Bilateral primary osteoarthritis of hip; N40.1 Benign prostatic hyperplasia with lower urinary tract symptoms; Z86.73 Personal history of transient ischemic attack (TIA), and cerebral infarction without residual deficits; Z95.1 Presence of aortocoronary bypass graft; Y84.6 Urinary catheterization as the cause of abnormal reaction of the patient, or of later complication, without mention of misadventure at the time of the procedure; Y92.89 Other specified places as the place of occurrence of the external cause; I12.9 Hypertensive chronic kidney disease with stage 1 through stage 4 chronic kidney disease, or unspecified chronic kidney disease; N18.9 Chronic kidney disease, unspecified; Z68.22 Body mass index [BMI] 22.0-22.9, adult
CPT/HCPCS: 36415; 71045; 71250-TC; 80048; 80053; 80061; 80200; 81000-TC; 82150-TC; 83036; 83605; 83690-TC; 83735-TC; 83880; 84100-TC; 84436; 84439; 84443-TC; 84479; 84484; 85007; 85025; 85027; 85610-TC; 85730-TC; 87040-TC; 87081; 87086; 92610-GN; 93005; 93306; 94640; 94760; 97110-GP; 97116-GP; 97530-GP; C1751; J0282; J0696; J1580; J1720; J1956; J2060; J2270; J3260; J3370; J3490; J7030; J7050; J7060; J7612